=== PATIENT | female | born 1985 | race Caucasian/White ===

== ENCOUNTER 2016-09-22 11:22 | Emergency (ER) | payer SELFPAY ==
[2016-09-22] MEDS ORDERED: ONDANSETRON 4 MG TAB.RAPDIS PO ONE (12:17)
[2016-09-22] MEDS ORDERED: HYDROCODONE/ACETAMINOPHEN 5-325 MG TABLET PO ONE (12:17)
[2016-09-22] MEDS ORDERED: NAPROXEN 250 MG TABLET PO ONE (12:17)
--- NOTE | 2016-09-22 12:24 | ER Document Report ---
ED GI/ - General Chief Complaint: Urinary Problem Stated Complaint: URINARY PROBLEM Notes: The patient is a 31-year-old female, past medical history prior kidney stones and infections, seizures, possible bipolar, presents with 2 days of suprapubic pain that is now going into her right flank and subjective fevers. She says this feels similar to her prior kidney infection. She is also feeling nauseous and vomited after drinking fluids earlier today. She denies chest pain, shortness of breath, vaginal discharge, diarrhea, constipation, rash or headache. TRAVEL OUTSIDE OF THE [place] IN LAST 30 DAYS: No - Related Data Allergies/Adverse Reactions: phenytoin sodium [From Dilantin] Allergy (Severe, Verified 09/22/16 11:32) Seizures phenytoin sodium extended [From Dilantin] Allergy (Severe, Verified 09/22/16 11: 32) Seizures amoxicillin [Amoxicillin] Allergy (Mild, Verified 09/22/16 11:32) Urticaria ciprofloxacin [Ciprofloxacin] Allergy (Mild, Verified 09/22/16 11:32) Urticaria Penicillins Allergy (Mild, Verified 09/22/16 11:32) Urticaria Past Medical History - General Information source: Patient - Social History Smoking Status: Current Every Day Smoker Chew tobacco use (# tins/day): No Frequency of alcohol use: Rare Drug Abuse: None Family History: Reviewed & Not Pertinent, Arthritis, CAD, CVA, DM, Hyperlipidemia, Hypertension, Malignancy, Thyroid Disfunction Patient has suicidal ideation: No Patient has homicidal ideation: No - Past Medical History Cardiac Medical History: Reports: Hx Heart Murmur Neurological Medical History: Reports: Hx Migraine, Hx Seizures - last seizure 3 months ago - states is not on any anti-convulsant medication Endocrine Medical History: Reports: Hx Diabetes Mellitus Type 2, Hx Hyperthyroidism Renal/ Medical History: Reports: Hx Ectopic , Hx Kidney Stones, Hx Ovarian Cysts. Denies: Hx Peritoneal Dialysis, Hx Pelvic Inflammatory Disease Musculoskeltal Medical History: Reports Hx Musculoskeletal Deformity, Reports Hx Musculoskeletal Trauma Skin Medical History: Reports Hx MRSA Psychiatric Medical History: Reports: Hx Attention Deficit Hyperactivity Disorder Traumatic Medical History: Reports: Hx Fractures - clavicle ribs arm nose Infectious Medical History: Reports: Hx MRSA Past Surgical History: Reports: Hx Section, Hx Gynecologic Surgery - tubal ligation, Hx Nose Surgery, Hx Tubal Ligation - Immunizations Hx Diphtheria, Pertussis, Tetanus Vaccination: Yes - december 11 2015 Review of Systems - Review of Systems Notes: REVIEW OF SYSTEMS: CONSTITUTIONAL: -fevers, -chills EENT: -eye pain, -difficulty swallowing, -nasal congestion CARDIOVASCULAR:-chest pain, -syncope. RESPIRATORY: -cough, -SOB GASTROINTESTINAL: -abdominal pain, +nausea, +vomiting, -diarrhea GENITOURINARY: +dysuria, +hematuria MUSCULOSKELETAL: -back pain, -neck pain SKIN: -rash or skin lesions. HEMATOLOGIC: -easy bruising or bleeding. LYMPHATIC: -swollen, enlarged glands. NEUROLOGICAL: -altered mental status or loss of consciousness, -headache, - neurologic symptoms PSYCHIATRIC: -anxiety, -depression. ALL OTHER SYSTEMS REVIEWED AND NEGATIVE. Physical Exam - Vital signs Vitals: Temp Pulse Resp BP Pulse Ox 98.9 F 73 15 116/77 99 09/22/16 11:32 09/22/16 11:32 09/22/16 11:32 09/22/16 11:32 09/22/16 11:32 - Notes Notes: PHYSICAL EXAMINATION: GENERAL: Mild distress. HEAD: Atraumatic, normocephalic. EYES: Pupils equal round and reactive to light, extraocular movements intact, sclera anicteric, conjunctiva are normal. ENT: nares patent, oropharynx clear without exudates. Moist mucous membranes. NECK: Normal range of motion, supple without lymphadenopathy LUNGS: Breath sounds clear to auscultation bilaterally and equal. No wheezes rales or rhonchi. HEART: Regular rate and rhythm without murmurs ABDOMEN: Right CVA tenderness. Suprapubic tenderness. Non-distended and normoactive bowel sounds EXTREMITIES: Normal range of motion, no pitting or edema. No cyanosis. NEUROLOGICAL: Cranial nerves grossly intact. Normal speech, normal gait. Normal sensory, motor, and reflex exams. PSYCH: Normal mood, normal affect. SKIN: Warm, Dry, normal turgor, no rashes or lesions noted. Course - Re-evaluation Re-evalutation: Patient with signs of pyelonephritis on physical exam. UA shows 3-4 WBCs with trace Leuk Esterases. Looking through old allergies, patient urine grew out Escherichia coli in the past, which is sensitive to Bactrim. Patient has no right lower quadrant abdominal tenderness and is able to move around without pain. Told her that appendicitis is less likely at this time. Will send home with Bactrim and Zofran with strict return precautions. Patient understands. - Vital Signs Vital signs: Temp Pulse Resp BP Pulse Ox 98.9 F 73 15 116/77 99 09/22/16 11:32 09/22/16 11:32 09/22/16 11:32 09/22/16 11:32 09/22/16 11:32 - Laboratory Laboratory results interpreted by me: 09/22/16 12:25 Ur Leukocyte Esterase TRACE H Discharge - Discharge Clinical Impression: Flank pain, Dysuria Condition: Stable Disposition: HOME, SELF-CARE Additional Instructions: PYELONEPHRITIS: Your evaluation shows evidence of pyelonephritis. This is an infection in the kidney. Typical symptoms are fever, pain in the flank, pain on urination, and frequent urination. Many cases of pyelonephritis can be treated at home. Hospital care may be necessary for patients who are very ill, or elderly or . Pyelonephritis is treated with antibiotics. Be sure to take all the medication as prescribed. Drink plenty of liquids (about three quarts per day) . You may take acetaminophen for fever. You should feel significantly improved within two days. You should have a recheck of your urine in about one week to insure that the infection is gone. Return for a re-examination if your symptoms worsen in any way -- such as high fever, shaking chills, severe weakness or dizziness, severe pain, or inability to pass your urine. ANTINAUSEA MEDICATION: You have been given a medication to suppress nausea and vomiting. This type of medication can be given as a shot, pill, or suppository. It will usually last for many hours. Pills and shots usually last six to eight hours, suppositories last about 12 hours. For the typical illness, only one or two doses of the medication may be necessary. Mild lightheadedness may occur. This type of medicine can cause drowsiness. Do not drive or operate dangerous machinery while under its influence. Do not mix with alcohol. See your doctor at once if you have muscle spasms or tightness, or uncontrollable motions (particularly of the neck, mouth, or jaw). Persistent vomiting or severe lightheadedness should also be evaluated by the physician. ANTIBIOTIC THERAPY: You have been given an antibiotic prescription. It's important that you take all the medication, unless instructed otherwise by your physician. Failure to complete the entire course can result in relapse of your condition. Common side effects of antibiotics include nausea, intestinal cramping, or diarrhea. Women may develop vaginal yeast infections, and babies can get yeast (thrush) in the mouth following the use of antibiotics. Contact your physician if you develop significant side effects from this medication. Allergy to this antibiotic can result in hives, wheezing, faintness, or itching. If symptoms of allergy occur, stop the medication and call the doctor. TRIMETHOPRIM-SULFA: You have been given a prescription for trimethoprim-sulfa (TMS, Septra, Bactrim). This is a combination antibiotic of the sulfa class, often used for urinary tract infections, middle ear infections, bronchitis, shigella intestinal infection, and Pneumocystis pneumonia. TMS is usually well-tolerated. Occasional side effects include nausea and decreased appetite. Septra is not recommended for infants less than two months of age. Do not take this medication if you have experienced severe side effects or allergy to sulfa medicine. You should stop this medicine at once and contact your physician if you develop any rash, joint pain, shortness of breath, bruising, or jaundice ( yellow color in the skin), or if you develop any other new or unusual symptoms. USE OF ACETAMINOPHEN (Tylenol): Acetaminophen may be taken for pain relief or fever control. It's much safer than aspirin, offering a wider range of "safe" dosages. It is safe during . Some brand names are Tylenol, Panadol, Datril, Anacin 3, Tempra, and Liquiprin. Acetaminophen can be repeated every four hours. The following are maximum recommended dosages: >89 pounds or adults 650 mg to 900 mg Acetaminophen can be repeated every four hours. Maximum dose not to exceed 4000 mg a day. FOLLOW-UP CARE: If you have been referred to a physician for follow-up care, call the physician s office for an appointment as you were instructed or within the next two days. If you experience worsening or a significant change in your symptoms, notify the physician immediately or return to the Emergency Department at any time for re-evaluation. Prescriptions: Ondansetron [Zofran Odt 4 mg Tablet] 1 - 2 tab PO Q4H PRN #15 tab.rapdis PRN Reason: For Nausea/Vomiting Sulfamethoxazole/Trimethoprim [Bactrim 400-80 mg Tablet] 1 each PO Q12H #20 tablet
[2016-09-22 13:16] LABS: APPEARANCE,URINE CLOUDY; BILIRUBIN,URINE NEGATIVE (NEGATIVE); GLUCOSE, URINE NEGATIVE (NEGATIVE); KETONES,URINE NEGATIVE (NEGATIVE); LEUKOCYTE ESTERASE,URINE TRACE (NEGATIVE); NITRITE,URINE NEGATIVE (NEGATIVE); PROTEIN,URINE NEGATIVE (NEGATIVE); URINE SPECIFIC GRAVITY 1.016; UROBILINOGEN,URINE NEGATIVE mg/dL (<2.0)
[2016-09-22 14:07] VITALS: BP 113/81
== END 2016-09-22 14:03 | disposition home or self-care (01) ==
LOC: ER 11:22
DX: R10.9 Unspecified abdominal pain (principal); R30.0 Dysuria; R50.9 Fever, unspecified; F17.200 Nicotine dependence, unspecified, uncomplicated
CPT/HCPCS: 81001; 81025; 99283

== ENCOUNTER 2017-02-08 11:05 | Emergency (ER) | payer SELFPAY ==
[2017-02-08 12:09] LABS: ABSOLUTE MONOCYTES (AUTO) 0.3 10^3/uL (0.1-1.4); ABSOLUTE NEUT (AUTO) 4.2 10^3/uL (1.7-8.2); BASOPHILS % (AUTO) 0.6 % (0-2); EOSINOPHILS % (AUTO) 0.7 % (0-6); HEMATOCRIT 38.5 % (36.0-47.0); HEMOGLOBIN 13.1 g/dL (12.0-15.5); HGB HCT DIFFERENCE 0.8; LYMPHOCYTES % (AUTO) 30.7 % (13-45); MEAN CORPUSCULAR HEMOGLOBIN 31.5 pg (27.0-33.4); MEAN CORPUSCULAR HGB CONC 33.9 g/dL (32.0-36.0); MEAN CORPUSCULAR VOLUME 93 fl (80-97); MONOCYTES % (AUTO) 4.4 % (3-13); RED BLOOD COUNT 4.15 10^6/uL (3.72-5.28); RED CELL DISTRIBUTION WIDTH 13.7 % (11.5-14.0); SEGMENTED NEUTROPHILS % (AUTO) 63.6 % (42-78); WHITE BLOOD COUNT 6.7 10^3/uL (4.0-10.5)
--- NOTE | 2017-02-08 12:18 | RADIOLOGY REPORT (SQ) ---
EXAM DESCRIPTION: CT HEAD WITHOUT COMPLETED DATE/TIME: 02/08/2017 12:02 pm REASON FOR STUDY: lovell COMPARISON: None. TECHNIQUE: Axial images acquired through the brain without intravenous contrast. Images reviewed wi th bone, brain and subdural windows. Images stored on PACS. All CT scanners at this facility use dose modulation, iterative reconstruction, and/or weight based d osing when appropriate to reduce radiation dose to as low as reasonably achievable (ALARA). [facility]: Dose Right [facility]: CareDose [facility]: Dose Right [facility]: Teradose 4D [facility]: Inherited Health RADIATION DOSE: Up-to-date CT equipment and radiation dose reduction techniques were employed. CTDIv ol: 64.6 mGy. DLP: 1292 mGy-cm. mGy. LIMITATIONS: None. FINDINGS: VENTRICLES: Normal size and contour. CEREBRUM: No masses. No hemorrhage. No midline shift. No evidence for acute infarction. Normal gra y/white matter differentiation. No areas of low density in the white matter. CEREBELLUM: No masses. No hemorrhage. No alteration of density. No evidence for acute infarction. EXTRAAXIAL SPACES: No fluid collections. No masses. ORBITS AND GLOBE: No intra- or extraconal masses. Normal contour of globe without masses. CALVARIUM: No fracture. PARANASAL SINUSES: No fluid or mucosal thickening. SOFT TISSUES: No mass or hematoma. OTHER: No other significant finding. IMPRESSION: NORMAL BRAIN CT WITHOUT CONTRAST. COMMENT: Quality ID # [id number]: Final reports with documentation of one or more dose reduction techniques (e.g., Automated exposure control, adjustment of the mA and/or kV according to patient size, use of iterative reconstruction technique) TECHNICAL DOCUMENTATION: JOB ID: [id number]- All Rights Reserved
[2017-02-08 12:22] LABS: AMORPHOUS SEDIMENT,URINE TRACE /HPF; APPEARANCE,URINE TURBID; BILIRUBIN,URINE NEGATIVE (NEGATIVE); GLUCOSE, URINE NEGATIVE (NEGATIVE); KETONES,URINE NEGATIVE (NEGATIVE); LEUKOCYTE ESTERASE,URINE NEGATIVE (NEGATIVE); NITRITE,URINE NEGATIVE (NEGATIVE); PROTEIN,URINE 30 mg/dL (NEGATIVE); URINE SPECIFIC GRAVITY 1.019; UROBILINOGEN,URINE NEGATIVE mg/dL (<2.0)
[2017-02-08 12:24] LABS: ALANINE AMINOTRANSFERASE 22 U/L (9-52); ALBUMIN 4.7 g/dL (3.5-5.0); ALKALINE PHOSPHATASE 93 U/L (38-126); ANION GAP 10 (5-19); ASPARTATE AMINO TRANSFERASE 18 U/L (14-36); BILIRUBIN,DIRECT 0.3 mg/dL (0.0-0.4); BILIRUBIN,TOTAL 0.7 mg/dL (0.2-1.3); BLOOD UREA NITROGEN 10 mg/dL (7-20); CALCIUM 10.3 mg/dL (8.4-10.2); CARBON DIOXIDE 26 mmol/L (22-30); CHLORIDE 106 mmol/L (98-107); CREATININE RESULT 0.72 mg/dL (0.52-1.25); GLUCOSE 92 mg/dL (75-110); POTASSIUM 4.3 mmol/L (3.6-5.0); TOTAL PROTEIN 7.3 g/dL (6.3-8.2)
--- NOTE | 2017-02-08 12:37 | ER Document Report ---
ED General - General Chief Complaint: Neck Pain >24hrs old Stated Complaint: LIGHT HEADEDNESS Time Seen by Provider: 02/08/17 11:30 Mode of Arrival: Ambulatory Information source: Patient Notes: Patient reports several days of headache neck pain, weakness, lightheadedness, generalized body aches. She states she did recently have a tick embedded in her left butt cheek that was removed. Patient denies any rashes. No fevers. She has had no vaginal bleeding or problems with urination. Patient states that the headache is occipital and constant. It is moderate. It is throbbing. Nothing makes it better or worse. It does radiate into her neck. TRAVEL OUTSIDE OF THE [place] IN LAST 30 DAYS: No - Related Data Allergies/Adverse Reactions: phenytoin sodium [From Dilantin] Allergy (Severe, Verified 02/08/17 11:41) Seizures phenytoin sodium extended [From Dilantin] Allergy (Severe, Verified 02/08/17 11: 41) Seizures amoxicillin [Amoxicillin] Allergy (Mild, Verified 02/08/17 11:41) Urticaria ciprofloxacin [Ciprofloxacin] Allergy (Mild, Verified 02/08/17 11:41) Urticaria Penicillins Allergy (Mild, Verified 02/08/17 11:41) Urticaria Past Medical History - General Information source: Patient - Social History Smoking Status: Current Every Day Smoker Chew tobacco use (# tins/day): No Frequency of alcohol use: None Drug Abuse: None Lives with: Family Family History: Reviewed & Not Pertinent, Arthritis, CAD, CVA, DM, Hyperlipidemia, Hypertension, Malignancy, Thyroid Disfunction Patient has suicidal ideation: No Patient has homicidal ideation: No - Past Medical History Cardiac Medical History: Reports: Hx Heart Murmur Neurological Medical History: Reports: Hx Migraine, Hx Seizures - last seizure 3 months ago - states is not on any anti-convulsant medication Endocrine Medical History: Reports: Hx Diabetes Mellitus Type 2, Hx Hyperthyroidism Renal/ Medical History: Reports: Hx Ectopic , Hx Kidney Stones, Hx Ovarian Cysts. Denies: Hx Peritoneal Dialysis, Hx Pelvic Inflammatory Disease Musculoskeltal Medical History: Reports Hx Musculoskeletal Deformity, Reports Hx Musculoskeletal Trauma Skin Medical History: Reports Hx MRSA Psychiatric Medical History: Reports: Hx Attention Deficit Hyperactivity Disorder Traumatic Medical History: Reports: Hx Fractures - clavicle ribs arm nose Infectious Medical History: Reports: Hx MRSA Past Surgical History: Reports: Hx Section, Hx Gynecologic Surgery - tubal ligation, Hx Nose Surgery, Hx Tubal Ligation - Immunizations Hx Diphtheria, Pertussis, Tetanus Vaccination: Yes - december 11 2015 Review of Systems - Review of Systems Constitutional: Malaise, Weakness Cardiovascular: denies: Chest pain, Palpitations Respiratory: denies: Cough, Short of breath -: Yes All other systems reviewed and negative Physical Exam - Vital signs Vitals: Temp Pulse BP Pulse Ox 98.5 F 80 120/67 99 02/08/17 11:18 02/08/17 11:18 02/08/17 11:18 02/08/17 11:18 Interpretation: Normal - General General appearance: Appears well, Alert - HEENT Head: Normocephalic, Atraumatic Eyes: Normal Pupils: PERRL Mucous membranes: Moist Pharynx: Normal. No: Erythema, Exudate Neck: No: Lymphadenopathy, Meningismus - Respiratory Respiratory status: No respiratory distress Chest status: Nontender Breath sounds: Normal Chest palpation: Normal - Cardiovascular Rhythm: Regular Heart sounds: Normal auscultation Murmur: No - Abdominal Inspection: Normal Distension: No distension Bowel sounds: Normal Tenderness: Nontender Organomegaly: No organomegaly - Back Back: Normal, Nontender - Extremities General upper extremity: Normal inspection, Nontender, Normal color, Normal ROM , Normal temperature General lower extremity: Normal inspection, Nontender, Normal color, Normal ROM , Normal temperature, Normal weight bearing. No: Abelardo's sign - Neurological Neuro grossly intact: Yes Cognition: Normal Orientation: AAOx4 [place] Coma Scale Eye Opening: Spontaneous [place] Coma Scale Verbal: Oriented [place] Coma Scale Motor: Obeys Commands [place] Coma Scale Total: 15 Speech: Normal Motor strength normal: LUE, RUE, LLE, RLE Sensory: Normal - Psychological Associated symptoms: Normal affect, Normal mood - Skin Skin Temperature: Warm Skin Moisture: Dry Skin Color: Normal Irregularity with: Other - Left lateral butt cheek was inspected with the direct supervision of the nurseRupa. Patient has a very small area of erythema without any signs of superinfection. Course - Vital Signs Vital signs: Temp Pulse Resp BP Pulse Ox 98.5 F 80 120/67 99 02/08/17 11:18 02/08/17 11:18 02/08/17 11:18 02/08/17 11:18 - Laboratory Result Diagrams: 02/08/17 11:53 02/08/17 11:53 Laboratory results interpreted by me: 02/08/17 02/08/17 11:53 11:53 Calcium 10.3 H Urine Protein 30 H Urine Blood MODERATE H - Diagnostic Test Radiology reviewed: Image reviewed, Reports reviewed - neg head ct Discharge - Discharge Clinical Impression: UTI (urinary tract infection), Tick bite Condition: Stable Disposition: HOME, SELF-CARE Instructions: Urinary Tract Infection ([facility]) Additional Instructions: Please call your primary care provider as soon as possible to arrange follow- up. You may use the primary care provider, Dr. Etienne if you do not currently have a primary care provider. Prescriptions: Doxycycline Hyclate 100 mg PO BID #14 capsule Hydrocodone/Acetaminophen [[place] 5-325 mg Tablet] 1 tab PO Q6 PRN #6 tablet PRN Reason: Forms: Return to Work Referrals: MARCOS ETIENNE MD [ACTIVE STAFF] - Follow up as needed
[2017-02-08 12:43] VITALS: BP 130/75
== END 2017-02-08 12:43 | disposition home or self-care (01) ==
LOC: ER 11:05
DX: W57.XXXA Bitten or stung by nonvenomous insect and other nonvenomous arthropods, initial encounter (principal); S30.860A Insect bite (nonvenomous) of lower back and pelvis, initial encounter; N39.0 Urinary tract infection, site not specified; R51 Headache; M54.2 Cervicalgia; R53.1 Weakness; R53.81 Other malaise; R42 Dizziness and giddiness; F17.200 Nicotine dependence, unspecified, uncomplicated; E11.9 Type 2 diabetes mellitus without complications; Z88.8 Allergy status to other drugs, medicaments and biological substances; Z88.0 Allergy status to penicillin; Z88.1 Allergy status to other antibiotic agents; Z86.14 Personal history of Methicillin resistant Staphylococcus aureus infection
CPT/HCPCS: 36415; 70450; 80053; 81001; 81025; 85025; 99284

== ENCOUNTER 2017-07-19 16:58 | Emergency (ER) | payer SELFPAY ==
[2017-07-19 18:50] LABS: APPEARANCE,URINE CLOUDY; BILIRUBIN,URINE NEGATIVE (NEGATIVE); COLOR,URINE YELLOW; GLUCOSE, URINE NEGATIVE (NEGATIVE); KETONES,URINE NEGATIVE (NEGATIVE); LEUKOCYTE ESTERASE,URINE LARGE (NEGATIVE); NITRITE,URINE POSITIVE (NEGATIVE); PROTEIN,URINE 30 mg/dL (NEGATIVE); URINE SPECIFIC GRAVITY 1.018
[2017-07-19] MEDS ORDERED: PHENAZOPYRIDINE HCL 200 MG TABLET PO ONE (19:05)
[2017-07-19] MEDS ORDERED: SULFAMETHOXAZOLE/TRIMETHOPRIM 800-160 MG TABLET PO ONE (19:06)
[2017-07-19] MEDS ORDERED: CEFTRIAXONE INJ 1000 MG VIAL IM ONE (19:11)
[2017-07-19] MEDS ORDERED: LIDOCAINE 1% INJ-PF (10 MG/ML) 30 ML SDV INFIL ONE (19:11)
--- NOTE | 2017-07-19 19:15 | ER Document Report ---
ED General - General Chief Complaint: Low Back Pain Stated Complaint: PAINFUL URINATION Time Seen by Provider: 07/19/17 18:17 Mode of Arrival: Ambulatory Information source: Patient, Relative TRAVEL OUTSIDE OF THE [place] IN LAST 30 DAYS: No - HPI Notes: 31-year-old female presents today with 1 week of dysuria, burning, right CVA tenderness. reports pain 4/10, burning with urination. denies vaginal discharge or pelvic pain. denies back pain. has not tried any otc medications. nothing makes better or worse. lmp x 3 days ago. hx of uti. Denies any cp, sob, n/v/d. denies any fevers or chills. Eating and drinking without issues. - Related Data Allergies/Adverse Reactions: phenytoin sodium [From Dilantin] Allergy (Severe, Verified 07/19/17 16:59) Seizures phenytoin sodium extended [From Dilantin] Allergy (Severe, Verified 07/19/17 16: 59) Seizures amoxicillin [Amoxicillin] Allergy (Mild, Verified 07/19/17 16:59) Urticaria ciprofloxacin [Ciprofloxacin] Allergy (Mild, Verified 07/19/17 16:59) Urticaria Penicillins Allergy (Mild, Verified 07/19/17 16:59) Urticaria Past Medical History - General Information source: Patient, Parent - Social History Smoking Status: Current Every Day Smoker Chew tobacco use (# tins/day): No Frequency of alcohol use: Occasional Drug Abuse: None Family History: Reviewed & Not Pertinent, Arthritis, CAD, CVA, DM, Hyperlipidemia, Hypertension, Malignancy, Thyroid Disfunction Patient has suicidal ideation: No Patient has homicidal ideation: No - Past Medical History Cardiac Medical History: Reports: Hx Heart Murmur Neurological Medical History: Reports: Hx Migraine, Hx Seizures - last seizure 3 months ago - states is not on any anti-convulsant medication Endocrine Medical History: Reports: Hx Diabetes Mellitus Type 2, Hx Hyperthyroidism Renal/ Medical History: Reports: Hx Ectopic , Hx Kidney Stones, Hx Ovarian Cysts. Denies: Hx Peritoneal Dialysis, Hx Pelvic Inflammatory Disease Musculoskeltal Medical History: Reports Hx Musculoskeletal Deformity, Reports Hx Musculoskeletal Trauma Skin Medical History: Reports Hx MRSA Psychiatric Medical History: Reports: Hx Attention Deficit Hyperactivity Disorder Traumatic Medical History: Reports: Hx Fractures - clavicle ribs arm nose Infectious Medical History: Reports: Hx MRSA Past Surgical History: Reports: Hx Section, Hx Gynecologic Surgery - tubal ligation, Hx Nose Surgery, Hx Tubal Ligation - Immunizations Hx Diphtheria, Pertussis, Tetanus Vaccination: Yes - december 11 2015 Review of Systems - Review of Systems Constitutional: No symptoms reported EENT: No symptoms reported Cardiovascular: No symptoms reported Respiratory: No symptoms reported Gastrointestinal: No symptoms reported Genitourinary: See HPI Female Genitourinary: No symptoms reported Musculoskeletal: No symptoms reported Skin: No symptoms reported Hematologic/Lymphatic: No symptoms reported Neurological/Psychological: No symptoms reported Physical Exam - Vital signs Vitals: Temp Pulse Resp BP Pulse Ox 99.2 F 81 16 117/60 98 07/19/17 17:16 07/19/17 17:16 07/19/17 17:16 07/19/17 17:16 07/19/17 17:16 - Notes Notes: PHYSICAL EXAMINATION: GENERAL: Well-appearing, well-nourished and in no acute distress. HEAD: Atraumatic, normocephalic. EYES: Pupils equal round and reactive to light, extraocular movements intact, conjunctiva are normal. ENT: Nares patent, oropharynx clear without exudates. Moist mucous membranes. NECK: Normal range of motion, supple without lymphadenopathy LUNGS: Breath sounds clear to auscultation bilaterally and equal. No wheezes rales or rhonchi. HEART: Regular rate and rhythm without murmurs ABDOMEN: Soft, nontender, nondistended abdomen. No guarding, no rebound. No masses appreciated. Right CVA tenderness, suprapubic tenderness on palpation. Female : deferred Musculoskeletal: Normal range of motion, no pitting or edema. No cyanosis. NEUROLOGICAL: Cranial nerves grossly intact. Normal speech, normal gait. Normal sensory, motor exams PSYCH: Normal mood, normal affect. SKIN: Warm, Dry, normal turgor, no rashes or lesions noted. Course - Re-evaluation Re-evalutation: 07/19/17 19:21 Test with patient that I did give 1 g of Rocephin, she states she did have an allergy back when she was a child where she had a rash, states she is unsure she has had penicillin since that time. She did not have an allergic reaction advised to return to the ER if any signs or symptoms became worse. Antibiotics with food, eat yogurt daily to prevent loose stool. Take [id number] Motrin and Tylenol as needed for any fevers or pain.~ Follow up with primary care within 1-2 days. All questions and concerns answered by this provider. Patient/family~ states would follow plan of care and agreed to plan of care. Patient was discharged home and off unit without incident. Please excuse any errors in this document was done by dragon dictation Rechecked the patient who is resting comfortably. - Vital Signs Vital signs: Temp Pulse Resp BP Pulse Ox 99.2 F 81 16 117/60 98 07/19/17 17:16 07/19/17 17:16 07/19/17 17:16 07/19/17 17:16 07/19/17 17:16 - Laboratory Laboratory results interpreted by wa: 07/19/17 17:20 Urine Protein 30 H Urine Blood MODERATE H Urine Nitrite POSITIVE H Urine Urobilinogen 2.0 H Ur Leukocyte Esterase LARGE H Discharge - Discharge Clinical Impression: Acute pyelonephritis Condition: Good Disposition: HOME, SELF-CARE Instructions: Pyelonephritis ([facility]), Rocephin ([facility]), Antibiotic Therapy ([facility]), Ciprofloxacin ([facility]) Additional Instructions: PYELONEPHRITIS: Your evaluation shows evidence of pyelonephritis. This is an infection in the kidney. Typical symptoms are fever, pain in the flank, pain on urination, and frequent urination. Many cases of pyelonephritis can be treated at home. Hospital care may be necessary for patients who are very ill, or elderly or . Pyelonephritis is treated with antibiotics. Be sure to take all the medication as prescribed. Drink plenty of liquids (about three quarts per day) . You may take acetaminophen for fever. You should feel significantly improved within two days. You should have a recheck of your urine in about one week to insure that the infection is gone. Return for a re-examination if your symptoms worsen in any way -- such as high fever, shaking chills, severe weakness or dizziness, severe pain, or inability to pass your urine. TORADOL INJECTION: You have been given an injection of ketorolac tromethamine (Toradol). This is an excellent, safe drug for pain control. It also has potent antiinflammatory action. You should have significant pain relief within about one hour. Toradol is not addicting and is non-sedating. It does not interfere with driving or work. Call or return if you develop itching, hives, shortness of breath, or rash. PAIN MEDICATION INJECTION: You have received an injection of a pain medication. You should experience significant pain relief within 45 minutes. This drug is a narcotic - - it will impair your judgement, slow your reaction time and make you sleepy ( as well as relieve your pain). Narcotics also can cause nausea. You should not drive, work with machinery, or perform any task requiring mental alertness until all effects of the medication are gone -- six to eight hours. Do not take any alcohol, or sedatives, and do not take any other medication without checking with your physician. ANTINAUSEA MEDICATION: You have been given a medication to suppress nausea and vomiting. This type of medication can be given as a shot, pill, or suppository. It will usually last for many hours. Pills and shots usually last six to eight hours, suppositories last about 12 hours. For the typical illness, only one or two doses of the medication may be necessary. Mild lightheadedness may occur. This type of medicine can cause drowsiness. Do not drive or operate dangerous machinery while under its influence. Do not mix with alcohol. See your doctor at once if you have muscle spasms or tightness, or uncontrollable motions (particularly of the neck, mouth, or jaw). Persistent vomiting or severe lightheadedness should also be evaluated by the physician. ANTIBIOTIC THERAPY: You have been given an antibiotic prescription. It's important that you take all the medication, unless instructed otherwise by your physician. Failure to complete the entire course can result in relapse of your condition. Common side effects of antibiotics include nausea, intestinal cramping, or diarrhea. Women may develop vaginal yeast infections, and babies can get yeast (thrush) in the mouth following the use of antibiotics. Contact your physician if you develop significant side effects from this medication. Allergy to this antibiotic can result in hives, wheezing, faintness, or itching. If symptoms of allergy occur, stop the medication and call the doctor. ROCEPHIN: You have been given an injection of an antibiotic called Rocephin ( ceftriaxone). Sometimes the injection must be combined with antibiotic pills. For some infections, such as an uncomplicated ear infection, Rocephin provides all the antibiotic that's needed. The antibiotic will be in your body for about two days. For serious infections, we usually repeat doses of Rocephin daily. Side effects are very unusual following a shot. Women may develop vaginal yeast infections, and babies can get yeast (thrush) in the mouth following the use of antibiotics. Contact your physician if you have symptoms with this medication. Allergy to this antibiotic can result in hives, wheezing, faintness, or itching. If symptoms of allergy occur, call the doctor at once. CIPROFLOXACIN: You have been given an antibacterial agent, ciprofloxacin (Cipro). This medicine is not related to the penicillins, sulfas, cephalosporins, or tetracyclines. It is often given to patients who are allergic to these drugs. It has been chosen for you either because other drugs are not appropriate, or because of the nature of your problem. Cipro should not be taken with antacids, as these can decrease its effectiveness. It can be taken without regard to meals. CIPRO SHOULD NOT BE TAKEN BY CHILDREN, NURSING WOMEN, OR WOMEN. Although Cipro is usually well-tolerated, common side effects can include nausea and diarrhea. Contact your doctor if you experience any unusual symptoms while on this medication, such as joint pain or swelling, shortness of breath, wheezing, faintness, or hives. FOLLOW-UP CARE: If you have been referred to a physician for follow-up care, call the physician s office for an appointment as you were instructed or within the next two days. If you experience worsening or a significant change in your symptoms, notify the physician immediately or return to the Emergency Department at any time for re-evaluation. Return immediately for any new or worsening symptoms. Follow up with primary care provider, call tomorrow to make followup appointment. Prescriptions: Ciprofloxacin HCl [Cipro 500 mg Tablet] 500 mg PO BID #20 tablet Phenazopyridine HCl [Pyridium] 200 mg PO TIDP PRN #9 tablet PRN Reason: Forms: Return to Work Referrals: JESSE PIÑA MD [ACTIVE STAFF] - Follow up in 1 week ROBERTO MEAD MD [COMMUNITY BASED STAFF] - Follow up in 3-5 days
[2017-07-19 20:37] VITALS: BP 110/65
== END 2017-07-19 20:35 | disposition home or self-care (01) ==
LOC: ER 16:58
DX: N10 Acute pyelonephritis (principal); E11.9 Type 2 diabetes mellitus without complications; F17.200 Nicotine dependence, unspecified, uncomplicated; Z88.8 Allergy status to other drugs, medicaments and biological substances; Z88.1 Allergy status to other antibiotic agents; Z88.0 Allergy status to penicillin; Z86.14 Personal history of Methicillin resistant Staphylococcus aureus infection
CPT/HCPCS: 99283; 96372; 87086; 81025; 87088; 81001; 87186; J3490 ×2; J0696

== ENCOUNTER 2017-07-24 09:25 | Emergency (ER) | payer SELFPAY ==
[2017-07-24] MEDS ORDERED: NORMAL SALINE 1000 ML 1,000 ML IV ONE (09:52)
[2017-07-24] MEDS ORDERED: KETOROLAC TROMETHAMINE INJ/PF 30 MG/1 ML SDV IV ONE (09:52)
--- NOTE | 2017-07-24 09:54 | ER Document Report ---
ED Medical Screen (RME) - General Chief Complaint: Urinary Problem Stated Complaint: LOWER ABDOMINAL PAIN Time Seen by Provider: 07/24/17 09:52 Mode of Arrival: Ambulatory Information source: Patient TRAVEL OUTSIDE OF THE [place] IN LAST 30 DAYS: No - HPI Patient complains to provider of: flank pain Onset: Other - pt was seen here last week with d/o uti --- states pain is worse -- has h/o kidney stones - Related Data Allergies/Adverse Reactions: phenytoin sodium [From Dilantin] Allergy (Severe, Verified 07/24/17 09:44) Seizures phenytoin sodium extended [From Dilantin] Allergy (Severe, Verified 07/24/17 09: 44) Seizures amoxicillin [Amoxicillin] Allergy (Mild, Verified 07/24/17 09:44) Urticaria ciprofloxacin [Ciprofloxacin] Allergy (Mild, Verified 07/24/17 09:44) Urticaria Penicillins Allergy (Mild, Verified 07/24/17 09:44) Urticaria Past Medical History - Social History Chew tobacco use (# tins/day): No Frequency of alcohol use: None Drug Abuse: None - Past Medical History Cardiac Medical History: Reports: Hx Heart Murmur Neurological Medical History: Reports: Hx Migraine, Hx Seizures - last seizure 3 months ago - states is not on any anti-convulsant medication Endocrine Medical History: Reports: Hx Diabetes Mellitus Type 2, Hx Hyperthyroidism Renal/ Medical History: Reports: Hx Ectopic , Hx Kidney Stones, Hx Ovarian Cysts. Denies: Hx Peritoneal Dialysis, Hx Pelvic Inflammatory Disease Musculoskeltal Medical History: Reports Hx Musculoskeletal Deformity, Reports Hx Musculoskeletal Trauma Skin Medical History: Reports Hx MRSA Psychiatric Medical History: Reports: Hx Attention Deficit Hyperactivity Disorder Traumatic Medical History: Reports: Hx Fractures - clavicle ribs arm nose Infectious Medical History: Reports: Hx MRSA Past Surgical History: Reports: Hx Section, Hx Gynecologic Surgery - tubal ligation, Hx Nose Surgery, Hx Tubal Ligation - Immunizations Hx Diphtheria, Pertussis, Tetanus Vaccination: Yes - december 11 2015 Physical Exam - Vital signs Vitals: Temp Pulse Resp BP Pulse Ox 98.6 F 105 H 18 127/76 H 99 07/24/17 09:37 07/24/17 09:37 07/24/17 09:37 07/24/17 09:37 07/24/17 09:37 Course - Vital Signs Vital signs: Temp Pulse Resp BP Pulse Ox 98.6 F 105 H 18 127/76 H 99 07/24/17 09:37 07/24/17 09:37 07/24/17 09:37 07/24/17 09:37 07/24/17 09:37
--- NOTE | 2017-07-24 10:04 | ER Document Report ---
ED General - General Chief Complaint: Urinary Problem Stated Complaint: LOWER ABDOMINAL PAIN Time Seen by Provider: 07/24/17 09:52 Mode of Arrival: Ambulatory Information source: Patient TRAVEL OUTSIDE OF THE [place] IN LAST 30 DAYS: No - HPI Notes: 31 yr old female returns to the emergency room after being seen by this provider 5 days ago for a pyelonephritis where she was treated with 1 g Rocephin , started on Bactrim because she has an allergy to ciprofloxacin, with complaints of worsening lower back pain, urinary pressure, and myalgias that started 2 days ago. Patient states she has been taking oral Bactrim as directed as well as increasing oral fluids. Patient states she felt better after few days of being seen in the ER, but it started to gradually become worse. Denies any rashes. Denies any fevers or chills, sore throat, cough, sinus pain, nasal congestion, chest pain, shortness of breath, nausea, vomiting , diarrhea. Denies any vaginal or pelvic pain. Pain is 8 out of 10, throbbing achy. States she feels like the antibiotics are somewhat helping. She does have a history of nephrolithiasis. - Related Data Allergies/Adverse Reactions: phenytoin sodium [From Dilantin] Allergy (Severe, Verified 07/24/17 09:44) Seizures phenytoin sodium extended [From Dilantin] Allergy (Severe, Verified 07/24/17 09: 44) Seizures amoxicillin [Amoxicillin] Allergy (Mild, Verified 07/24/17 09:44) Urticaria ciprofloxacin [Ciprofloxacin] Allergy (Mild, Verified 07/24/17 09:44) Urticaria Penicillins Allergy (Mild, Verified 07/24/17 09:44) Urticaria Past Medical History - General Information source: Patient - Social History Smoking Status: Current Every Day Smoker Chew tobacco use (# tins/day): No Frequency of alcohol use: None Drug Abuse: None Family History: Reviewed & Not Pertinent, Arthritis, CAD, CVA, DM, Hyperlipidemia, Hypertension, Malignancy, Thyroid Disfunction Patient has suicidal ideation: No Patient has homicidal ideation: No - Past Medical History Cardiac Medical History: Reports: Hx Heart Murmur Neurological Medical History: Reports: Hx Migraine, Hx Seizures - last seizure 3 months ago - states is not on any anti-convulsant medication Endocrine Medical History: Reports: Hx Diabetes Mellitus Type 2, Hx Hyperthyroidism Renal/ Medical History: Reports: Hx Ectopic , Hx Kidney Stones, Hx Ovarian Cysts. Denies: Hx Peritoneal Dialysis, Hx Pelvic Inflammatory Disease Musculoskeltal Medical History: Reports Hx Musculoskeletal Deformity, Reports Hx Musculoskeletal Trauma Skin Medical History: Reports Hx MRSA Psychiatric Medical History: Reports: Hx Attention Deficit Hyperactivity Disorder Traumatic Medical History: Reports: Hx Fractures - clavicle ribs arm nose Infectious Medical History: Reports: Hx MRSA Past Surgical History: Reports: Hx Section, Hx Gynecologic Surgery - tubal ligation, Hx Nose Surgery, Hx Tubal Ligation - Immunizations Hx Diphtheria, Pertussis, Tetanus Vaccination: Yes - december 11 2015 Review of Systems - Review of Systems Constitutional: No symptoms reported EENT: No symptoms reported Cardiovascular: No symptoms reported Respiratory: No symptoms reported Gastrointestinal: See HPI Genitourinary: See HPI Female Genitourinary: No symptoms reported Musculoskeletal: No symptoms reported Skin: No symptoms reported Hematologic/Lymphatic: No symptoms reported Neurological/Psychological: No symptoms reported Physical Exam - Vital signs Vitals: Temp Pulse Resp BP Pulse Ox 98.6 F 105 H 18 127/76 H 99 07/24/17 09:37 07/24/17 09:37 07/24/17 09:37 07/24/17 09:37 07/24/17 09:37 Interpretation: Tachycardic - Notes Notes: PHYSICAL EXAMINATION: GENERAL: Well-appearing, well-nourished and in no acute distress. HEAD: Atraumatic, normocephalic. EYES: Pupils equal round and reactive to light, extraocular movements intact, conjunctiva are normal. ENT: Nares patent, oropharynx clear without exudates. Moist mucous membranes. NECK: Normal range of motion, supple without lymphadenopathy LUNGS: Breath sounds clear to auscultation bilaterally and equal. No wheezes rales or rhonchi. HEART: Regular rate and rhythm without murmurs ABDOMEN: Soft, nontender, nondistended abdomen. No guarding, no rebound. No masses appreciated. R>L CVA tenderness on palpation. noted suprapubic tenderness on palpation. Female : deferred Musculoskeletal: Normal range of motion, no pitting or edema. No cyanosis. NEUROLOGICAL: Cranial nerves grossly intact. Normal speech, normal gait. Normal sensory, motor exams PSYCH: Normal mood, normal affect. SKIN: Warm, Dry, normal turgor, no rashes or lesions noted. Course - Re-evaluation Re-evalutation: Rechecked the patient who is resting comfortably. On re-exam, patient is symptomatically improved. Discussed the results of the labs/radiology as well as the diagnosis at great length. He has a 2 mm nonobstructing caylceal calculus or pole of the right kidney, no ureteral calculi. Merrill with patient to continue taking antibiotics, to take Zofran as needed for nausea and, take pain medication as needed for pain, take Flomax to dilate uterus to passed stone. Urine strainer given to Flako. Follow-up with PCP within 3 days. Follow-up with urologist within 1 week. Return to the emergency room if symptoms become worse. Discussed the need to return to the ER for any new or worsening sx. Patient understands to take the Rx as directed. All questions answered. Patient comfortable with the decision to go home. Patient/family states would follow plan of care and agreed to plan of care. Patient was discharged home and off unit without incident. Please excuse any errors in this document was done by dragon dictation. - Vital Signs Vital signs: Temp Pulse Resp BP Pulse Ox 98.6 F 105 H 18 127/76 H 99 07/24/17 09:37 07/24/17 09:37 07/24/17 09:37 07/24/17 09:37 07/24/17 09:37 - Laboratory Result Diagrams: 07/24/17 10:43 07/24/17 10:43 Discharge - Discharge Clinical Impression: Calyceal renal calculus Condition: Good Disposition: HOME, SELF-CARE Additional Instructions: KIDNEY STONE: You are passing or have passed a kidney stone. These stones are usually due to increased calcium or uric acid concentrations in your urine. Stones within the kidney itself are not painful. The pain occurs as the stone leaves the kidney to pass down the long tube, called the ureter, leading to the bladder. If the stone is small, it will usually pass by itself. Most patients can pass the stone at home. You will usually receive medications for pain, nausea or vomiting, and sometimes a medication to assist in passing the kidney stone. However, if the pain is very severe or if vomiting prevents you from taking oral pain medications, you may need to return for further treatment. Drink three or four quarts of fluids per day. You will be given pain medication (if needed) and urine strainers. Strain all your urine to see if the stone passes. If your doctor has asked you to bring the stone in for analysis, return with the stone once it has passed. Return if pain or vomiting become severe, if you develop a high fever, if you are unable to pass your urine, or if other unusual symptoms occur. TORADOL INJECTION: You have been given an injection of ketorolac tromethamine (Toradol). This is an excellent, safe drug for pain control. It also has potent antiinflammatory action. You should have significant pain relief within about one hour. Toradol is not addicting and is non-sedating. It does not interfere with driving or work. Call or return if you develop itching, hives, shortness of breath, or rash. PAIN MEDICATION INJECTION: You have received an injection of a pain medication. You should experience significant pain relief within 45 minutes. This drug is a narcotic - - it will impair your judgement, slow your reaction time and make you sleepy ( as well as relieve your pain). Narcotics also can cause nausea. You should not drive, work with machinery, or perform any task requiring mental alertness until all effects of the medication are gone -- six to eight hours. Do not take any alcohol, or sedatives, and do not take any other medication without checking with your physician. ANTINAUSEA MEDICATION: You have been given a medication to suppress nausea and vomiting. This type of medication can be given as a shot, pill, or suppository. It will usually last for many hours. Pills and shots usually last six to eight hours, suppositories last about 12 hours. For the typical illness, only one or two doses of the medication may be necessary. Mild lightheadedness may occur. This type of medicine can cause drowsiness. Do not drive or operate dangerous machinery while under its influence. Do not mix with alcohol. See your doctor at once if you have muscle spasms or tightness, or uncontrollable motions (particularly of the neck, mouth, or jaw). Persistent vomiting or severe lightheadedness should also be evaluated by the physician. ORAL NARCOTIC MEDICATION: You have been given a prescription for pain control. This medication is a narcotic. It's best taken with food, as nausea can result if taken on an empty stomach. Don't operate machinery or drive within six hours of taking this medication. Do not combine this medicine with alcohol, or with any medication which can cause sedation (such as cold tablets or sleeping pills) unless you get permission from the physician. Narcotics tend to cause constipation. If possible, drink plenty of fluids and eat a diet high in fiber and fruits. Please be aware that prescription narcotics also have the potential for abuse. People become addicted to these medications because of the general sense of wellbeing that they induce. This feeling along with a significant reduction in tension, anxiety, and aggression provides a stimulating seductive quality to these drugs. Once your pain is under control, we encourage you to discard your unused narcotics. FLOMAX (tamsulosin): Flomax is a medicine that shrinks the prostate gland. It helps relieve symptoms of benign prostatic hypertrophy, such as frequent urination, weak stream, and inadequate emptying. It has been shown to dilate the ureter (tube leading from the kidney to the bladder) and help in passing kidney stones Flomax usually causes no side effects. You may notice slight tiredness and dizziness for a few days. Some patients develop nasal congestion. Rarely, impotence can occur. If the symptoms are bothersome and don't improve with continued use, call your doctor. Contact your doctor or return if you have fainting spells, severe weakness or dizziness, shortness of breath, or rash. FOLLOW-UP CARE: If you have been referred to a physician for follow-up care, call the physician s office for an appointment as you were instructed or within the next two days. If you experience worsening or a significant change in your symptoms, notify the physician immediately or return to the Emergency Department at any time for re-evaluation. Up with PCP and urologist within 3-5 days to 1 week. Return to the emergency room symptoms become worse. Return immediately for any new or worsening symptoms. Follow up with primary care provider, call tomorrow to make followup appointment. Referrals: EMY LEBLANC MD [ACTIVE STAFF] - Follow up in 3-5 days KEANU KINCAID MD [EMERITUS] - Follow up in 3-5 days
[2017-07-24 10:59] LABS: ABSOLUTE LYMPHOCYTES (AUTO) 1.3 10^3/uL (0.5-4.7); ABSOLUTE MONOCYTES (AUTO) 0.4 10^3/uL (0.1-1.4); ABSOLUTE NEUT (AUTO) 4.2 10^3/uL (1.7-8.2); BASOPHILS % (AUTO) 0.5 % (0-2); EOSINOPHILS % (AUTO) 0.8 % (0-6); HEMATOCRIT 39.8 % (36.0-47.0); HEMOGLOBIN 13.4 g/dL (12.0-15.5); LYMPHOCYTES % (AUTO) 21.5 % (13-45); MEAN CORPUSCULAR HEMOGLOBIN 31.3 pg (27.0-33.4); MEAN CORPUSCULAR HGB CONC 33.8 g/dL (32.0-36.0); MEAN CORPUSCULAR VOLUME 93 fl (80-97); MONOCYTES % (AUTO) 6.2 % (3-13); PLATELET COUNT 318 10^3/uL (150-450); RED CELL DISTRIBUTION WIDTH 13.5 % (11.5-14.0); TOTAL CELLS COUNTED % (AUTO) 100 %; WHITE BLOOD COUNT 5.9 10^3/uL (4.0-10.5)
[2017-07-24 11:18] LABS: ALANINE AMINOTRANSFERASE 14 U/L (9-52); ALBUMIN 4.9 g/dL (3.5-5.0); ALKALINE PHOSPHATASE 79 U/L (38-126); ANION GAP 13 (5-19); ASPARTATE AMINO TRANSFERASE 19 U/L (14-36); BILIRUBIN,DIRECT 0.2 mg/dL (0.0-0.4); BILIRUBIN,TOTAL 0.5 mg/dL (0.2-1.3); BLOOD UREA NITROGEN 15 mg/dL (7-20); CARBON DIOXIDE 23 mmol/L (22-30); CHLORIDE 105 mmol/L (98-107); GLUCOSE 99 mg/dL (75-110); POTASSIUM 4.6 mmol/L (3.6-5.0); SODIUM 141.1 mmol/L (137-145); TOTAL PROTEIN 7.3 g/dL (6.3-8.2)
--- NOTE | 2017-07-24 12:07 | RADIOLOGY REPORT (SQ) ---
EXAM DESCRIPTION: CT LTD RENAL STONE PROTOCOL ON COMPLETED DATE/TIME: 07/24/2017 11:48 am REASON FOR STUDY: flank pain COMPARISON: 12/24/2015. TECHNIQUE: CT scan of the abdomen and pelvis performed without intravenous or oral contrast. Images reviewed with lung, soft tissue, and bone windows. Reconstructed coronal and sagittal MPR images revi ewed. All images stored on PACS. All CT scanners at this facility use dose modulation, iterative reconstruction, and/or weight based d osing when appropriate to reduce radiation dose to as low as reasonably achievable (ALARA). [facility]: Dose Right [facility]: CareDose [facility]: Dose Right [facility]: Teradose 4D [facility]: [employer] RADIATION DOSE: CT Rad equipment meets quality standard of care and radiation dose reduction techniq ues were employed. CTDIvol: 4.8 mGy. DLP: 244 mGy-cm.mGy. LIMITATIONS: None. FINDINGS: LOWER CHEST: No significant findings. No nodules or infiltrates. NON-CONTRASTED LIVER, SPLEEN, ADRENALS: Evaluation limited by lack of IV contrast. No identified sign ificant masses. PANCREAS: No masses. No peripancreatic inflammatory changes. GALLBLADDER: No identified stones by CT criteria. No inflammatory changes to suggest cholecystitis. RIGHT KIDNEY AND URETER: No suspicious masses. Assessment limited by lack of IV contrast. 2 mm chandrika ceal calculus in the lower pole. No hydronephrosis or hydroureter. LEFT KIDNEY AND URETER: No suspicious masses. Assessment limited by lack of IV contrast. No signifi cant calcifications. No hydronephrosis or hydroureter. AORTA AND RETROPERITONEUM: No aneurysm. No retroperitoneal masses or adenopathy. BOWEL AND PERITONEAL CAVITY: No obvious masses or inflammatory changes. No free fluid. APPENDIX: Normal. PELVIS, BLADDER, AND ABDOMINAL WALL:No abnormal masses. No free fluid. Bladder normal. BONES: No significant findings. OTHER: No other significant finding. IMPRESSION: 2 MM NONOBSTRUCTING CALYCEAL CALCULUS IN THE LOWER POLE OF THE RIGHT KIDNEY. NO URETERA L CALCULI. NO OTHER SIGNIFICANT OR ACUTE PROCESS IN THE ABDOMEN OR PELVIS. COMMENT: Quality ID # [id number]: Final reports with documentation of one or more dose reduction techniques (e.g., Automated exposure control, adjustment of the mA and/or kV according to patient size, use of iterative reconstruction technique) TECHNICAL DOCUMENTATION: JOB ID: [id number] [employer]- All Rights Reserved
[2017-07-24 12:18] LABS: APPEARANCE,URINE SLIGHTLY-CLOUDY; BILIRUBIN,URINE NEGATIVE (NEGATIVE); COLOR,URINE YELLOW; GLUCOSE, URINE NEGATIVE (NEGATIVE); KETONES,URINE NEGATIVE (NEGATIVE); LEUKOCYTE ESTERASE,URINE TRACE (NEGATIVE); NITRITE,URINE NEGATIVE (NEGATIVE); PROTEIN,URINE 30 mg/dL (NEGATIVE); URINE SPECIFIC GRAVITY 1.019; UROBILINOGEN,URINE NEGATIVE mg/dL (<2.0)
[2017-07-24] MEDS ORDERED: MORPHINE SULFATE 10 MG/ML INJ IV ONE (12:22)
[2017-07-24 12:48] VITALS: BP 106/62
== END 2017-07-24 12:54 | disposition home or self-care (01) ==
LOC: ER 09:25
DX: N20.0 Calculus of kidney (principal); N12 Tubulo-interstitial nephritis, not specified as acute or chronic; M79.1 Myalgia; M54.5 Low back pain; F17.200 Nicotine dependence, unspecified, uncomplicated; E11.9 Type 2 diabetes mellitus without complications; Z88.1 Allergy status to other antibiotic agents; Z88.0 Allergy status to penicillin; Z88.8 Allergy status to other drugs, medicaments and biological substances; Z86.14 Personal history of Methicillin resistant Staphylococcus aureus infection
CPT/HCPCS: 99284; 96361; 96374; 36415; 84703; 85025; 81025; 80053; 81001; 76380; J1885; J7030

== ENCOUNTER 2017-09-08 19:11 | Emergency (ER) | payer SELFPAY ==
[2017-09-08] MEDS ORDERED: CEPHALEXIN 500 MG CAPSULE PO ONE (21:13)
[2017-09-08] MEDS ORDERED: BUPIVACAINE HCL 0.5 % INJ/PF 30 ML SDV INJ ONE (21:13)
--- NOTE | 2017-09-08 21:15 | ER Document Report ---
HPI - HPI Pain Level: 5 Context: Patient is a 32-year-old female presents emergency department complaining of left upper tooth pain got worse over the past 2 days. She states she had a tooth cleaning 3 weeks ago and was told at that time that she has a loose filling of a left upper tooth. Since her cleaning she has had pain 1/5 in severity but worse over the past 2 days. Has been taking Tylenol Motrin at home and BC powder. She denies any facial swelling, fell odor or foul drainage, difficulty swallowing, difficulty breathing. Last menstrual period 1 week ago - REPRODUCTIVE Reproductive: DENIES: : Past Medical History - Social History Smoking Status: Current Every Day Smoker Chew tobacco use (# tins/day): No Frequency of alcohol use: None Drug Abuse: None Family History: Reviewed & Not Pertinent, Arthritis, CAD, CVA, DM, Hyperlipidemia, Hypertension, Malignancy, Thyroid Disfunction Patient has suicidal ideation: No Patient has homicidal ideation: No - Past Medical History Cardiac Medical History: Reports: Hx Heart Murmur Neurological Medical History: Reports: Hx Migraine, Hx Seizures - last seizure 3 months ago - states is not on any anti-convulsant medication Endocrine Medical History: Reports: Hx Diabetes Mellitus Type 2, Hx Hyperthyroidism Renal/ Medical History: Reports: Hx Ectopic , Hx Kidney Stones, Hx Ovarian Cysts. Denies: Hx Peritoneal Dialysis, Hx Pelvic Inflammatory Disease Musculoskeltal Medical History: Reports Hx Musculoskeletal Deformity, Reports Hx Musculoskeletal Trauma Skin Medical History: Reports Hx MRSA Psychiatric Medical History: Reports: Hx Attention Deficit Hyperactivity Disorder Traumatic Medical History: Reports: Hx Fractures - clavicle ribs arm nose Infectious Medical History: Reports: Hx MRSA Past Surgical History: Reports: Hx Section, Hx Gynecologic Surgery - tubal ligation, Hx Nose Surgery, Hx Tubal Ligation - Immunizations Hx Diphtheria, Pertussis, Tetanus Vaccination: Yes - december 11 2015 Vertical Provider Document - CONSTITUTIONAL Agree With Documented VS: Yes Notes: PHYSICAL EXAM GENERAL: Alert, interacts well. HEENT: NCAT, pale conjunctiva, extraocular movements intact, pupils PERRL. MMM, Uvula midline. dental filling in tooth 15 without swelling/abscess Airway patent. No evidence of tonsillar enlargement, peritonsillar abscess, retropharyngeal abscess. NEUROLOGICAL: Alert and oriented x4. Normal speech. PSYCH: Normal affect, normal mood. SKIN: Warm, dry, normal turgor. No rashes or lesions noted. - INFECTION CONTROL TRAVEL OUTSIDE OF THE [place] IN LAST 30 DAYS: No Course - Re-evaluation Re-evalutation: 09/08/17 21:15 Patient is a 32 year old female who is HDS, NAD and afebrile. Presentation is most consistent with likely an infected tooth. Airway is patent. Vitals within normal limits. Patient is able swallow without any difficulty. There is no significant facial swelling. Patient will be started on antibiotics. She had complete resolution of her pain after infraalveolar dental block. I've instructed to follow-up with dentistry as earliest ability for definitive management. Return precautions and follow-up recommendations have been discussed at length. - Vital Signs Vital signs: Temp Pulse Resp BP Pulse Ox 98.6 F 67 16 127/73 H 100 09/08/17 19:36 09/08/17 19:36 09/08/17 19:36 09/08/17 19:36 09/08/17 19:36 Procedures - Additional Procedures dental block Additional Procedures: Other - Patient had a left upper jaw inferior alveolar dental block utilizing 5cc of 0.5% bupivacaine with complete resolution of her symptoms and no complications Discharge - Discharge Clinical Impression: Toothache Condition: Good Disposition: HOME, SELF-CARE Additional Instructions: You have been seen for dental pain. It is very important that you follow-up with a dentist for definitive care. Please return if you develop fever greater than 101, swelling in your face, vomiting, difficulty breathing or swallowing, or any other symptoms that are concerning to you. For pain you should take ibuprofen 600 mg every 6 hours as needed. Prescriptions: Cephalexin Monohydrate [Keflex 500 mg Capsule] 500 mg PO Q6H 7 Days capsule
[2017-09-08 21:40] VITALS: BP 122/75
== END 2017-09-08 21:44 | disposition home or self-care (01) ==
LOC: ER 19:11
DX: K08.89 Other specified disorders of teeth and supporting structures (principal); F17.200 Nicotine dependence, unspecified, uncomplicated; E11.9 Type 2 diabetes mellitus without complications
CPT/HCPCS: 99282; 64400; J3490

== ENCOUNTER 2017-09-11 12:41 | Emergency (ER) | payer SELFPAY ==
[2017-09-11] MEDS ORDERED: ACTIVATED CHARCOAL 25 GM BOTTLE PO ONE (12:57)
--- NOTE | 2017-09-11 13:00 | ER Document Report ---
ED Medical Screen (RME) - General Chief Complaint: Accidental Overdose Stated Complaint: POSSIBLE OVERDOSE Time Seen by Provider: 09/11/17 12:50 Notes: This 32-year-old female patient reports taking between 8 and 10 Concerta tablets about 40 minutes ago. She was seen here 4 days ago with a toothache. She reports she said a friend to her car to get ibuprofen and the person brought back Concerta. They were both small red pills. She reports taking 8- 10 at one time. She states she did not know this was Concerta, and she was going to take the excessive dose of ibuprofen due to the pain from the toothache. As the patient reports the ingestion was 40 minutes ago, I immediately order an oral dose of activated charcoal. I have greeted and performed a rapid initial assessment of this patient. A comprehensive ED assessment and evaluation of the patient, analysis of test results and completion of the medical decision making process will be conducted by additional ED providers. TRAVEL OUTSIDE OF THE [place] IN LAST 30 DAYS: No - Related Data Allergies/Adverse Reactions: phenytoin sodium [From Dilantin] Allergy (Severe, Verified 07/24/17 09:44) Seizures phenytoin sodium extended [From Dilantin] Allergy (Severe, Verified 07/24/17 09: 44) Seizures amoxicillin [Amoxicillin] Allergy (Mild, Verified 07/24/17 09:44) Urticaria ciprofloxacin [Ciprofloxacin] Allergy (Mild, Verified 07/24/17 09:44) Urticaria Penicillins Allergy (Mild, Verified 07/24/17 09:44) Urticaria Past Medical History - Social History Chew tobacco use (# tins/day): No Frequency of alcohol use: Occasional Drug Abuse: None - Past Medical History Cardiac Medical History: Reports: Hx Heart Murmur Neurological Medical History: Reports: Hx Migraine, Hx Seizures - last seizure 3 months ago - states is not on any anti-convulsant medication Endocrine Medical History: Reports: Hx Diabetes Mellitus Type 2, Hx Hyperthyroidism Renal/ Medical History: Reports: Hx Ectopic , Hx Kidney Stones, Hx Ovarian Cysts. Denies: Hx Peritoneal Dialysis, Hx Pelvic Inflammatory Disease Musculoskeltal Medical History: Reports Hx Musculoskeletal Deformity, Reports Hx Musculoskeletal Trauma Skin Medical History: Reports Hx MRSA Psychiatric Medical History: Reports: Hx Attention Deficit Hyperactivity Disorder Traumatic Medical History: Reports: Hx Fractures - clavicle ribs arm nose Infectious Medical History: Reports: Hx MRSA Past Surgical History: Reports: Hx Section, Hx Gynecologic Surgery - tubal ligation, Hx Nose Surgery, Hx Tubal Ligation - Immunizations Hx Diphtheria, Pertussis, Tetanus Vaccination: Yes - december 11 2015 Physical Exam - Vital signs Vitals: Temp Pulse Resp BP Pulse Ox 98.4 F 103 H 18 145/86 H 99 09/11/17 12:46 09/11/17 12:46 09/11/17 12:46 09/11/17 12:46 09/11/17 12:46 Course - Vital Signs Vital signs: Temp Pulse Resp BP Pulse Ox 98.4 F 103 H 18 145/86 H 99 09/11/17 12:46 09/11/17 12:46 09/11/17 12:46 09/11/17 12:46 09/11/17 12:46
[2017-09-11] MEDS ORDERED: NORMAL SALINE 1000 ML 2,000 ML IV ONE (13:36)
[2017-09-11 13:38] LABS: ABSOLUTE EOSINOPHILS # (AUTO) 0.1 10^3/uL (0.0-0.6); ABSOLUTE MONOCYTES (AUTO) 0.3 10^3/uL (0.1-1.4); BASOPHILS % (AUTO) 0.5 % (0-2); EOSINOPHILS % (AUTO) 1.1 % (0-6); HEMATOCRIT 37.5 % (36.0-47.0); HEMOGLOBIN 12.7 g/dL (12.0-15.5); LYMPHOCYTES % (AUTO) 27.6 % (13-45); MEAN CORPUSCULAR HEMOGLOBIN 31.6 pg (27.0-33.4); MEAN CORPUSCULAR HGB CONC 33.8 g/dL (32.0-36.0); MEAN CORPUSCULAR VOLUME 93 fl (80-97); MONOCYTES % (AUTO) 3.9 % (3-13); PLATELET COUNT 318 10^3/uL (150-450); RED BLOOD COUNT 4.02 10^6/uL (3.72-5.28); RED CELL DISTRIBUTION WIDTH 13.4 % (11.5-14.0); SEGMENTED NEUTROPHILS % (AUTO) 66.9 % (42-78); TOTAL CELLS COUNTED % (AUTO) 100 %; WHITE BLOOD COUNT 7.4 10^3/uL (4.0-10.5)
[2017-09-11] MEDS ORDERED: LORAZEPAM INJ 2 MG/1 ML VIAL IV ONE ×2 (13:38→15:17)
--- NOTE | 2017-09-11 13:44 | ER Document Report ---
ED General - General Chief Complaint: Accidental Overdose Stated Complaint: POSSIBLE OVERDOSE Time Seen by Provider: 09/11/17 12:50 Mode of Arrival: Ambulatory Information source: Patient Notes: Patient is a 32-year-old female who presents to the ER today for accidental overdose of Concerta 54 mg. Patient states that she was at work whenever she was having a bad toothache, asked 1 of her friends to run out to her car and get her 200 mg ibuprofen. She did ask for a handful of them. Her friend went out to her car, accidentally grabbed the wrong bottle and brought her 8-10 capsules of Concerta instead. Patient did not realize this until after she taken it and started having palpitations, went to her car and looked at the bottles. Patient states that she does not keep labels on the bottles in her car as she is not allowed to have the original bottles at work, so she keeps it in unlabeled bottles. Patient states that she meant to take 8-10 of ibuprofen. She is admitting the palpitations at this time, and denies any chest pain, nausea, vomiting, shortness of breath or other symptoms.She states that the Concerta was her daughter's. She denies any suicidal or homicidal ideations, She denies that this was intentional. TRAVEL OUTSIDE OF THE [place] IN LAST 30 DAYS: No - Related Data Allergies/Adverse Reactions: phenytoin sodium [From Dilantin] Allergy (Severe, Verified 07/24/17 09:44) Seizures phenytoin sodium extended [From Dilantin] Allergy (Severe, Verified 07/24/17 09: 44) Seizures amoxicillin [Amoxicillin] Allergy (Mild, Verified 07/24/17 09:44) Urticaria ciprofloxacin [Ciprofloxacin] Allergy (Mild, Verified 07/24/17 09:44) Urticaria Penicillins Allergy (Mild, Verified 07/24/17 09:44) Urticaria Past Medical History - General Information source: Patient - Social History Smoking Status: Current Every Day Smoker Chew tobacco use (# tins/day): No Frequency of alcohol use: Occasional Drug Abuse: None Family History: Reviewed & Not Pertinent, Arthritis, CAD, CVA, DM, Hyperlipidemia, Hypertension, Malignancy, Thyroid Disfunction Patient has suicidal ideation: No Patient has homicidal ideation: No - Past Medical History Cardiac Medical History: Reports: Hx Heart Murmur Neurological Medical History: Reports: Hx Migraine, Hx Seizures - last seizure 3 months ago - states is not on any anti-convulsant medication Endocrine Medical History: Reports: Hx Diabetes Mellitus Type 2, Hx Hyperthyroidism Renal/ Medical History: Reports: Hx Ectopic , Hx Kidney Stones, Hx Ovarian Cysts. Denies: Hx Peritoneal Dialysis, Hx Pelvic Inflammatory Disease Musculoskeltal Medical History: Reports Hx Musculoskeletal Deformity, Reports Hx Musculoskeletal Trauma Skin Medical History: Reports Hx MRSA Psychiatric Medical History: Reports: Hx Attention Deficit Hyperactivity Disorder Traumatic Medical History: Reports: Hx Fractures - clavicle ribs arm nose Infectious Medical History: Reports: Hx MRSA Past Surgical History: Reports: Hx Section, Hx Gynecologic Surgery - tubal ligation, Hx Nose Surgery, Hx Tubal Ligation - Immunizations Hx Diphtheria, Pertussis, Tetanus Vaccination: Yes - december 11 2015 Review of Systems - Review of Systems Constitutional: No symptoms reported EENT: No symptoms reported Cardiovascular: See HPI Respiratory: No symptoms reported Gastrointestinal: No symptoms reported Genitourinary: No symptoms reported Female Genitourinary: No symptoms reported Musculoskeletal: No symptoms reported Skin: No symptoms reported Hematologic/Lymphatic: No symptoms reported Neurological/Psychological: See HPI Physical Exam - Vital signs Vitals: Temp Pulse Resp BP Pulse Ox 98.4 F 103 H 18 145/86 H 99 09/11/17 12:46 09/11/17 12:46 09/11/17 12:46 09/11/17 12:46 09/11/17 12:46 - Notes Notes: PHYSICAL EXAMINATION: GENERAL:Slightly anxious, but in no acute distress. HEAD: Atraumatic, normocephalic. EYES: Pupils equal round and reactive to light, extraocular movements intact, sclera anicteric, conjunctiva are normal. ENT: ear canals without erythema or foreign body, TMs pearly haile with good bony landmarks, nares patent, oropharynx clear without exudates. Moist mucous membranes. NECK: Normal range of motion, supple without lymphadenopathy LUNGS: CTAB and equal. No wheezes rales or rhonchi. HEART: Tachycardic with regular rhythm without murmurs ABDOMEN: Soft, no tenderness. No guarding, no rebound BACK: no vertebral tenderness, normal ROM GI/: no CVA tenderness EXTREMITIES: Normal range of motion, no pitting edema. No cyanosis. NEUROLOGICAL: Cranial nerves grossly intact. Normal sensory/motor exams. PSYCH: Normal mood, normal affect. SKIN: Warm, Dry, normal turgor, no rashes or lesions noted Course - Re-evaluation Re-evalutation: 09/11/17 13:40 I spoke with poison control, Ghazala, who advises at least a 12 hour observation, IV fluids and benzodiazepines as mainstay of treatment for Concerta overdose. Patient is very well at this time, sitting up, smiling, stating "I cannot believe I did this" patient denies suicidal or homicidal ideations. 09/11/17 16:18 pt wants to sign out AMA, she feels fine, vitals have been all within normal limits,. Patient does not want to wait the full 12 hours that tachycardia resolved poison control advises. I did advise her to stay for observation, she declines again. Her heart rate has been in the 60s for the last 2-3 hours. 09/12/17 08:22 - Vital Signs Vital signs: Temp Pulse Resp BP Pulse Ox 98.4 F 103 H 19 132/79 H 100 09/11/17 12:46 09/11/17 12:46 09/11/17 16:01 09/11/17 16:01 09/11/17 16:01 - Laboratory Result Diagrams: 09/11/17 13:17 09/11/17 13:17 Laboratory results interpreted by me: 09/11/17 13:17 Urine Protein 30 H Urine Blood SMALL H Ur Leukocyte Esterase LARGE H Discharge - Discharge Clinical Impression: Accidental overdose Qualifiers: Encounter type: initial encounter Qualified Code(s): T50.901A - Poisoning by unspecified drugs, medicaments and biological substances, accidental ( unintentional), initial encounter Condition: Stable Disposition: AGAINST MEDICAL ADVICE Additional Instructions: Please only take 800 mg of ibuprofen at a time for your toothache, please do not intentionally take more medication than on the bottle or prescribed. Return immediately for any new or worsening symptoms. Follow up with primary care provider, call tomorrow to make followup appointment.
[2017-09-11 13:50] LABS: APPEARANCE,URINE CLOUDY; BILIRUBIN,URINE NEGATIVE (NEGATIVE); COLOR,URINE YELLOW; GLUCOSE, URINE NEGATIVE (NEGATIVE); KETONES,URINE NEGATIVE (NEGATIVE); LEUKOCYTE ESTERASE,URINE LARGE (NEGATIVE); NITRITE,URINE NEGATIVE (NEGATIVE); PROTEIN,URINE 30 mg/dL (NEGATIVE); URINE SPECIFIC GRAVITY 1.035; UROBILINOGEN,URINE NEGATIVE mg/dL (<2.0)
[2017-09-11 13:53] LABS: ALANINE AMINOTRANSFERASE 23 U/L (9-52); ALBUMIN 4.7 g/dL (3.5-5.0); ALKALINE PHOSPHATASE 63 U/L (38-126); ANION GAP 10 (5-19); ASPARTATE AMINO TRANSFERASE 16 U/L (14-36); BILIRUBIN,DIRECT 0.2 mg/dL (0.0-0.4); BILIRUBIN,TOTAL 0.4 mg/dL (0.2-1.3); BLOOD UREA NITROGEN 14 mg/dL (7-20); CALCIUM 10.1 mg/dL (8.4-10.2); CARBON DIOXIDE 25 mmol/L (22-30); CHLORIDE 105 mmol/L (98-107); GLUCOSE 91 mg/dL (75-110); POTASSIUM 3.9 mmol/L (3.6-5.0); SODIUM 139.7 mmol/L (137-145); TOTAL PROTEIN 6.7 g/dL (6.3-8.2)
[2017-09-11 14:02] LABS: URINE AMPHETAMINES SCREEN NEGATIVE; URINE BARBITURATES SCREEN NEGATIVE; URINE BENZODIAZEPINES SCREEN NEGATIVE; URINE COCAINE SCREEN NEGATIVE; URINE MARIJUANA (THC) SCREEN NEGATIVE; URINE METHADONE SCREEN NEGATIVE; URINE PHENCYCLIDINE SCREEN NEGATIVE
[2017-09-11 17:04] VITALS: BP 132/79
--- NOTE | 2017-09-11 19:13 | EKG REPORT ---
SEVERITY:- ABNORMAL ECG - SINUS RHYTHM ACCELERATED AV CONDUCTION : Confirmed by: Cedric Bryant MD 11-Sep-2017 19:12:51
== END 2017-09-11 17:04 | disposition left against medical advice (07) ==
LOC: ER 12:41
DX: T43.631A Poisoning by methylphenidate, accidental (unintentional), initial encounter (principal); K08.9 Disorder of teeth and supporting structures, unspecified; X58.XXXA Exposure to other specified factors, initial encounter; F17.200 Nicotine dependence, unspecified, uncomplicated; E11.9 Type 2 diabetes mellitus without complications; Z88.0 Allergy status to penicillin; Z88.3 Allergy status to other anti-infective agents; Z87.442 Personal history of urinary calculi; Z86.14 Personal history of Methicillin resistant Staphylococcus aureus infection; Z98.51 Tubal ligation status
CPT/HCPCS: 93005; 96376; 99284; 96361; 96374; 36415; 84703; 85025; 80053; 81001; 80307; 93010; J2060; J7030; J3490

== ENCOUNTER 2017-09-12 08:17 | Emergency (ER) | payer SELFPAY ==
[2017-09-12] MEDS ORDERED: LORAZEPAM 1 MG TABLET PO ONE (08:49)
[2017-09-12] MEDS ORDERED: ONDANSETRON 4 MG TAB.RAPDIS PO ONE (08:49)
--- NOTE | 2017-09-12 09:17 | ER Document Report ---
ED General - General Chief Complaint: Tremor Stated Complaint: BODY SHAKING Time Seen by Provider: 09/12/17 08:47 Mode of Arrival: Ambulatory Information source: Patient, Relative Notes: 32-year-old female with a history of epilepsy, migraine headaches presents for the second day in a row with complaints of nausea, anxiousness, chest pain. Patient was seen yesterday in the emergency department after taking 8-10 Concerta pills. She states it was an accidental ingestion and she thought she was taking Motrin. She states that she felt well after her treatment in the emergency department yesterday and left AGAINST MEDICAL ADVICE prior to the advised observation time. She states when she got home she began developing chest pain and became more tremulous and began vomiting. Concerta is extended release and poison control did advise that she could have symptoms several hours after ingestion. Patient states the pills were her daughters and they were in an unmarked bottle. TRAVEL OUTSIDE OF THE [place] IN LAST 30 DAYS: No - HPI Onset: Yesterday Onset/Duration: Intermittent Quality of pain: No pain Severity: None Associated symptoms: Chest pain, Headache, Nausea, Vomiting Exacerbated by: Denies Relieved by: Denies Similar symptoms previously: Yes Recently seen / treated by doctor: Yes - 09/11/2017 - Related Data Allergies/Adverse Reactions: phenytoin sodium [From Dilantin] Allergy (Severe, Verified 09/12/17 08:46) Seizures phenytoin sodium extended [From Dilantin] Allergy (Severe, Verified 09/12/17 08: 46) Seizures amoxicillin [Amoxicillin] Allergy (Mild, Verified 09/12/17 08:46) Urticaria ciprofloxacin [Ciprofloxacin] Allergy (Mild, Verified 09/12/17 08:46) Urticaria Penicillins Allergy (Mild, Verified 09/12/17 08:46) Urticaria Past Medical History - General Information source: Patient - Social History Smoking Status: Current Every Day Smoker Frequency of alcohol use: Social Drug Abuse: None Family History: Reviewed & Not Pertinent, Arthritis, CAD, CVA, DM, Hyperlipidemia, Hypertension, Malignancy, Thyroid Disfunction Patient has suicidal ideation: No Patient has homicidal ideation: No - Past Medical History Cardiac Medical History: Reports: Hx Heart Murmur Neurological Medical History: Reports: Hx Migraine, Hx Seizures - last seizure 3 months ago - states is not on any anti-convulsant medication Endocrine Medical History: Reports: Hx Diabetes Mellitus Type 2, Hx Hyperthyroidism Renal/ Medical History: Reports: Hx Ectopic , Hx Kidney Stones, Hx Ovarian Cysts. Denies: Hx Peritoneal Dialysis, Hx Pelvic Inflammatory Disease Musculoskeltal Medical History: Reports Hx Musculoskeletal Deformity, Reports Hx Musculoskeletal Trauma Skin Medical History: Reports Hx MRSA Psychiatric Medical History: Reports: Hx Attention Deficit Hyperactivity Disorder Traumatic Medical History: Reports: Hx Fractures - clavicle ribs arm nose Infectious Medical History: Reports: Hx MRSA Past Surgical History: Reports: Hx Section - x2, Hx Gynecologic Surgery - tubal ligation, Hx Nose Surgery, Hx Tubal Ligation - Immunizations Hx Diphtheria, Pertussis, Tetanus Vaccination: Yes - december 11 2015 Review of Systems - Review of Systems Constitutional: denies: Chills, Fever EENT: denies: Blurred vision Cardiovascular: Chest pain Respiratory: denies: Short of breath Gastrointestinal: Nausea, Vomiting. denies: Abdominal pain Genitourinary: No symptoms reported Female Genitourinary: No symptoms reported Musculoskeletal: No symptoms reported Skin: No symptoms reported Neurological/Psychological: Anxiety, Tremor Physical Exam - Vital signs Vitals: Temp Pulse Resp BP Pulse Ox 98.8 F 87 14 134/67 H 98 09/12/17 08:23 09/12/17 08:23 09/12/17 08:23 09/12/17 08:23 09/12/17 08:23 Interpretation: Normal. No: Hypertensive, Tachycardic - General General appearance: Appears well, Alert In distress: None - HEENT Head: Normocephalic, Atraumatic Eyes: Normal Pupils: PERRL Mouth/Lips: Caries Mucous membranes: Normal Neck: Normal - Respiratory Respiratory status: No respiratory distress. No: Respiratory distress Chest status: Nontender. No: Pain with deep breathing Breath sounds: Normal Chest palpation: Normal - Cardiovascular Rhythm: Regular. No: Tachycardia Heart sounds: Normal auscultation Murmur: No Pulses: Normal: Radial, Dorsalis pedis Normal capillary refill: Yes - Neurological Neuro grossly intact: Yes Cognition: Normal Orientation: AAOx4 [place] Coma Scale Eye Opening: Spontaneous [place] Coma Scale Verbal: Oriented [place] Coma Scale Motor: Obeys Commands [place] Coma Scale Total: 15 Speech: Normal Cranial nerves: Normal Cerebellar coordination: Normal Motor strength normal: LUE, RUE, LLE, RLE Additional motor exam normals: Equal shellacker Sensory: Normal - Psychological Associated symptoms: Normal mood, Anxious Course - Vital Signs Vital signs: Temp Pulse Resp BP Pulse Ox 98.2 F 70 18 118/72 99 09/12/17 10:00 09/12/17 10:00 09/12/17 10:00 09/12/17 10:00 09/12/17 10:00 Discharge - Discharge Clinical Impression: Headache Qualifiers: Headache type: unspecified Headache chronicity pattern: episodic headache Intractability: not intractable Qualified Code(s): R51 - Headache Accidental drug ingestion Qualifiers: Encounter type: subsequent encounter Qualified Code(s): T50.901D - Poisoning by unspecified drugs, medicaments and biological substances, accidental ( unintentional), subsequent encounter Condition: Good Disposition: HOME, SELF-CARE Instructions: Headache ([facility]), Instructions for Home Care Following a Drug Overdose ([facility])
--- NOTE | 2017-09-12 09:46 | EKG REPORT ---
SEVERITY:- BORDERLINE ECG - SINUS RHYTHM SHORT NC INTERVAL, ACCELERATED AV CONDUCTION : Confirmed by: Lilian Sanchez 12-Sep-2017 09:46:14
[2017-09-12 09:52] LABS: URINE AMPHETAMINES SCREEN NEGATIVE; URINE BARBITURATES SCREEN NEGATIVE; URINE BENZODIAZEPINES SCREEN NEGATIVE; URINE COCAINE SCREEN NEGATIVE; URINE MARIJUANA (THC) SCREEN NEGATIVE; URINE METHADONE SCREEN NEGATIVE; URINE PHENCYCLIDINE SCREEN NEGATIVE
[2017-09-12 10:00] VITALS: BP 118/72
[2017-09-12] MEDS ORDERED: ACETAMINOPHEN 325 MG TABLET PO ONE (10:03)
== END 2017-09-12 10:16 | disposition home or self-care (01) ==
LOC: ER 08:17
DX: T43.631A Poisoning by methylphenidate, accidental (unintentional), initial encounter (principal); R51 Headache; R11.2 Nausea with vomiting, unspecified; R07.9 Chest pain, unspecified; F41.9 Anxiety disorder, unspecified; R25.1 Tremor, unspecified; E11.9 Type 2 diabetes mellitus without complications; K02.9 Dental caries, unspecified; F17.200 Nicotine dependence, unspecified, uncomplicated; Z88.0 Allergy status to penicillin; Z88.1 Allergy status to other antibiotic agents
CPT/HCPCS: 93005; 99284; 80307; 93010; S0119

== ENCOUNTER 2017-11-30 12:29 | Emergency (ER) | payer SELFPAY ==
[2017-11-30] MEDS ORDERED: NAPROXEN 250 MG TABLET PO ONE (12:46)
--- NOTE | 2017-11-30 12:49 | ER Document Report ---
ED GI/ - General Chief Complaint: Flank Pain Stated Complaint: FLANK PAIN Time Seen by Provider: 11/30/17 12:46 Notes: The patient is a 32-year-old female, past medical history multiple kidney infections, history of kidney stones, presents with 1 week of worsening bilateral flank pain and dysuria. She says the pain is constant and feels more similar to kidney infection that her kidney stones in the past. She tried AZO without much relief of her symptoms. Denies fevers, nausea, vomiting, diarrhea , constipation, chest pain or shortness of breath. TRAVEL OUTSIDE OF THE [place] IN LAST 30 DAYS: No - Related Data Allergies/Adverse Reactions: phenytoin sodium [From Dilantin] Allergy (Severe, Verified 11/30/17 12:42) Seizures phenytoin sodium extended [From Dilantin] Allergy (Severe, Verified 11/30/17 12: 42) Seizures amoxicillin [Amoxicillin] Allergy (Mild, Verified 11/30/17 12:42) Urticaria ciprofloxacin [Ciprofloxacin] Allergy (Mild, Verified 11/30/17 12:42) Urticaria Penicillins Allergy (Mild, Verified 11/30/17 12:42) Urticaria Past Medical History - General Information source: Patient - Social History Smoking Status: Current Every Day Smoker Chew tobacco use (# tins/day): No Frequency of alcohol use: Occasional Drug Abuse: None Family History: Reviewed & Not Pertinent, Arthritis, CAD, CVA, DM, Hyperlipidemia, Hypertension, Malignancy, Thyroid Disfunction Patient has suicidal ideation: No Patient has homicidal ideation: No - Past Medical History Cardiac Medical History: Reports: Hx Heart Murmur Neurological Medical History: Reports: Hx Migraine, Hx Seizures - last seizure 3 months ago - states is not on any anti-convulsant medication Endocrine Medical History: Reports: Hx Diabetes Mellitus Type 2, Hx Hyperthyroidism Renal/ Medical History: Reports: Hx Ectopic , Hx Kidney Stones, Hx Ovarian Cysts. Denies: Hx Peritoneal Dialysis, Hx Pelvic Inflammatory Disease Musculoskeltal Medical History: Reports Hx Musculoskeletal Deformity, Reports Hx Musculoskeletal Trauma Skin Medical History: Reports Hx MRSA Psychiatric Medical History: Reports: Hx Attention Deficit Hyperactivity Disorder Traumatic Medical History: Reports: Hx Fractures - clavicle ribs arm nose Infectious Medical History: Reports: Hx MRSA Past Surgical History: Reports: Hx Section - x2, Hx Gynecologic Surgery - tubal ligation, Hx Nose Surgery, Hx Tubal Ligation - Immunizations Hx Diphtheria, Pertussis, Tetanus Vaccination: Yes - december 11 2015 Review of Systems - Review of Systems Notes: REVIEW OF SYSTEMS: CONSTITUTIONAL: -fevers, -chills EENT: -eye pain, -difficulty swallowing, -nasal congestion CARDIOVASCULAR: -chest pain, -syncope. RESPIRATORY: -cough, -SOB GASTROINTESTINAL: -abdominal pain, -nausea, -vomiting, -diarrhea GENITOURINARY: +dysuria, -hematuria MUSCULOSKELETAL: +B/L flank pain, -neck pain SKIN: -rash or skin lesions. HEMATOLOGIC: -easy bruising or bleeding. LYMPHATIC: -swollen, enlarged glands. NEUROLOGICAL: -altered mental status or loss of consciousness, -headache, - neurologic symptoms PSYCHIATRIC: -anxiety, -depression. ALL OTHER SYSTEMS REVIEWED AND NEGATIVE. Physical Exam - Vital signs Vitals: Temp Pulse Resp BP Pulse Ox 98.6 F 80 18 131/73 H 100 11/30/17 12:33 11/30/17 12:33 11/30/17 12:33 11/30/17 12:33 11/30/17 12:33 - Notes Notes: PHYSICAL EXAMINATION: GENERAL: Well-appearing, well-nourished and in no acute distress. HEAD: Atraumatic, normocephalic. EYES: Pupils equal round and reactive to light, extraocular movements intact, sclera anicteric, conjunctiva are normal. ENT: nares patent, oropharynx clear without exudates. Moist mucous membranes. NECK: Normal range of motion, supple without lymphadenopathy LUNGS: Breath sounds clear to auscultation bilaterally and equal. No wheezes rales or rhonchi. HEART: Regular rate and rhythm without murmurs ABDOMEN: Soft, mild suprapubic tender, normoactive bowel sounds. No guarding, no rebound. No masses appreciated. BACK: B/L CVA tenderness. EXTREMITIES: Normal range of motion, no pitting or edema. No cyanosis. NEUROLOGICAL: Cranial nerves grossly intact. Normal speech, normal gait. Normal sensory and motor exams. PSYCH: Normal mood, normal affect. SKIN: Warm, Dry, normal turgor, no rashes or lesions noted. Course - Re-evaluation Re-evalutation: Patient appears well. She has signs and symptoms of pyelonephritis. Her symptoms are atypical for kidney stones at this time. Looking through old culture results, will begin her on Bactrim due to her allergies. Instructed her to follow-up with her primary care physician and given urology f/u due to frequent UTIs and pyelonephritis. Given very strict return precautions and she understands. - Vital Signs Vital signs: Temp Pulse Resp BP Pulse Ox 98.6 F 80 18 131/73 H 100 11/30/17 12:33 11/30/17 12:33 11/30/17 12:33 11/30/17 12:33 11/30/17 12:33 - Laboratory Laboratory results interpreted by me: 11/30/17 13:00 Urine Blood SMALL H Urine Nitrite POSITIVE H Urine Urobilinogen 2.0 H Ur Leukocyte Esterase TRACE H Discharge - Discharge Clinical Impression: Pyelonephritis Condition: Stable Disposition: HOME, SELF-CARE Additional Instructions: PYELONEPHRITIS: Your evaluation shows evidence of pyelonephritis. This is an infection in the kidney. Typical symptoms are fever, pain in the flank, pain on urination, and frequent urination. Many cases of pyelonephritis can be treated at home. Hospital care may be necessary for patients who are very ill, or elderly or . Pyelonephritis is treated with antibiotics. Be sure to take all the medication as prescribed. Drink plenty of liquids (about three quarts per day) . You may take acetaminophen for fever. You should feel significantly improved within two days. You should have a recheck of your urine in about one week to insure that the infection is gone. Return for a re-examination if your symptoms worsen in any way -- such as high fever, shaking chills, severe weakness or dizziness, severe pain, or inability to pass your urine. ANTIBIOTIC THERAPY: You have been given an antibiotic prescription. It's important that you take all the medication, unless instructed otherwise by your physician. Failure to complete the entire course can result in relapse of your condition. Common side effects of antibiotics include nausea, intestinal cramping, or diarrhea. Women may develop vaginal yeast infections, and babies can get yeast (thrush) in the mouth following the use of antibiotics. Contact your physician if you develop significant side effects from this medication. Allergy to this antibiotic can result in hives, wheezing, faintness, or itching. If symptoms of allergy occur, stop the medication and call the doctor. TRIMETHOPRIM-SULFA: You have been given a prescription for trimethoprim-sulfa (TMS, Septra, Bactrim). This is a combination antibiotic of the sulfa class, often used for urinary tract infections, middle ear infections, bronchitis, shigella intestinal infection, and Pneumocystis pneumonia. TMS is usually well-tolerated. Occasional side effects include nausea and decreased appetite. Septra is not recommended for infants less than two months of age. Do not take this medication if you have experienced severe side effects or allergy to sulfa medicine. You should stop this medicine at once and contact your physician if you develop any rash, joint pain, shortness of breath, bruising, or jaundice ( yellow color in the skin), or if you develop any other new or unusual symptoms. USE OF ACETAMINOPHEN (Tylenol): Acetaminophen may be taken for pain relief or fever control. It's much safer than aspirin, offering a wider range of "safe" dosages. It is safe during . Some brand names are Tylenol, Panadol, Datril, Anacin 3, Tempra, and Liquiprin. Acetaminophen can be repeated every four hours. The following are maximum recommended dosages: >89 pounds or adults 650 mg to 900 mg Acetaminophen can be repeated every four hours. Maximum dose not to exceed 4000 mg a day. FOLLOW-UP CARE: If you have been referred to a physician for follow-up care, call the physician s office for an appointment as you were instructed or within the next two days. If you experience worsening or a significant change in your symptoms, notify the physician immediately or return to the Emergency Department at any time for re-evaluation. Prescriptions: Ondansetron [Zofran Odt 4 mg Tablet] 1 - 2 tab PO Q4H PRN #15 tab.rapdis PRN Reason: For Nausea/Vomiting Sulfamethoxazole/Trimethoprim [Bactrim Ds Tablet] 1 each PO Q12H #20 tablet Forms: Elevated Blood Pressure Referrals: [facility] [Provider Group] - Follow up as needed
[2017-11-30 13:17] LABS: AMORPHOUS SEDIMENT,URINE TRACE /HPF; APPEARANCE,URINE CLOUDY; BILIRUBIN,URINE NEGATIVE (NEGATIVE); COLOR,URINE YELLOW; GLUCOSE, URINE NEGATIVE (NEGATIVE); KETONES,URINE NEGATIVE (NEGATIVE); LEUKOCYTE ESTERASE,URINE TRACE (NEGATIVE); NITRITE,URINE POSITIVE (NEGATIVE); PROTEIN,URINE NEGATIVE (NEGATIVE); URINE SPECIFIC GRAVITY 1.017
[2017-11-30 13:32] VITALS: BP 115/67
== END 2017-11-30 13:27 | disposition home or self-care (01) ==
LOC: ER 12:29
DX: N12 Tubulo-interstitial nephritis, not specified as acute or chronic (principal); F17.200 Nicotine dependence, unspecified, uncomplicated; E11.9 Type 2 diabetes mellitus without complications; Z88.8 Allergy status to other drugs, medicaments and biological substances; Z88.0 Allergy status to penicillin; Z88.1 Allergy status to other antibiotic agents; Z87.442 Personal history of urinary calculi
CPT/HCPCS: 81001; 81025; 99284

== ENCOUNTER 2018-05-11 13:09 | Emergency (ER) | payer MEDICAID ==
--- NOTE | 2018-05-11 13:41 | EKG REPORT ---
SEVERITY:- ABNORMAL ECG - SINUS RHYTHM LEFT ATRIAL ABNORMALITY : Confirmed by: Cedric Bryant MD 11-May-2018 13:39:33
[2018-05-11] MEDS ORDERED: ASPIRIN 81 MG TABLET, CHEWABLE PO ONE (14:16)
--- NOTE | 2018-05-11 14:18 | ER Document Report ---
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 With numbness and tingling sensation over both fingers. Intensity has gradually subsided. No previous history Normal exam TRAVEL OUTSIDE OF THE [place] IN LAST 30 DAYS: No - Related Data Allergies/Adverse Reactions: phenytoin sodium [From Dilantin] Allergy (Severe, Verified 05/11/18 14:14) Seizures phenytoin sodium extended [From Dilantin] Allergy (Severe, Verified 05/11/18 14: 14) Seizures amoxicillin [Amoxicillin] Allergy (Mild, Verified 05/11/18 14:14) Urticaria ciprofloxacin [Ciprofloxacin] Allergy (Mild, Verified 05/11/18 14:14) Urticaria Penicillins Allergy (Mild, Verified 05/11/18 14:14) Urticaria Past Medical History - Social History Chew tobacco use (# tins/day): No Frequency of alcohol use: Occasional Drug Abuse: None - Past Medical History Cardiac Medical History: Reports: Hx Heart Murmur Neurological Medical History: Reports: Hx Migraine, Hx Seizures - last seizure 3 months ago - states is not on any anti-convulsant medication Endocrine Medical History: Reports: Hx Diabetes Mellitus Type 2, Hx Hyperthyroidism Renal/ Medical History: Reports: Hx Ectopic , Hx Kidney Stones, Hx Ovarian Cysts. Denies: Hx Peritoneal Dialysis, Hx Pelvic Inflammatory Disease Musculoskeltal Medical History: Reports Hx Musculoskeletal Deformity, Reports Hx Musculoskeletal Trauma Skin Medical History: Reports Hx MRSA Psychiatric Medical History: Reports: Hx Attention Deficit Hyperactivity Disorder Traumatic Medical History: Reports: Hx Fractures - clavicle ribs arm nose Infectious Medical History: Reports: Hx MRSA Past Surgical History: Reports: Hx Section - x2, Hx Gynecologic Surgery - tubal ligation, Hx Nose Surgery, Hx Tubal Ligation - Immunizations Hx Diphtheria, Pertussis, Tetanus Vaccination: Yes - december 11 2015 Physical Exam - Vital signs Vitals: Temp Pulse Resp BP Pulse Ox 98.4 F 88 20 115/66 100 05/11/18 13:41 05/11/18 13:41 05/11/18 13:41 05/11/18 13:41 05/11/18 13:41 Course - Vital Signs Vital signs: Temp Pulse Resp BP Pulse Ox 98.4 F 88 20 115/66 100 05/11/18 13:41 05/11/18 13:41 05/11/18 13:41 05/11/18 13:41 05/11/18 13:41 Doctor's Discharge - Discharge Referrals: FARSHAD GARCIA FNP-C [Primary Care Provider] - Follow up as needed
[2018-05-11 14:40] LABS: ABSOLUTE BASOPHILS # (AUTO) 0.1 10^3/uL (0.0-0.2); ABSOLUTE EOSINOPHILS # (AUTO) 0.1 10^3/uL (0.0-0.6); ABSOLUTE LYMPHOCYTES (AUTO) 2.3 10^3/uL (0.5-4.7); ABSOLUTE MONOCYTES (AUTO) 0.4 10^3/uL (0.1-1.4); ABSOLUTE NEUT (AUTO) 6.4 10^3/uL (1.7-8.2); BASOPHILS % (AUTO) 0.6 % (0-2); EOSINOPHILS % (AUTO) 0.8 % (0-6); HEMATOCRIT 38.9 % (36.0-47.0); HEMOGLOBIN 13.3 g/dL (12.0-15.5); MEAN CORPUSCULAR HEMOGLOBIN 31.5 pg (27.0-33.4); MEAN CORPUSCULAR VOLUME 93 fl (80-97); MONOCYTES % (AUTO) 4.5 % (3-13); PLATELET COUNT 381 10^3/uL (150-450); RED CELL DISTRIBUTION WIDTH 13.4 % (11.5-14.0); SEGMENTED NEUTROPHILS % (AUTO) 69.1 % (42-78); TOTAL CELLS COUNTED % (AUTO) 100 %; WHITE BLOOD COUNT 9.3 10^3/uL (4.0-10.5)
[2018-05-11 15:03] LABS: ALANINE AMINOTRANSFERASE 24 U/L (9-52); ALBUMIN 4.7 g/dL (3.5-5.0); ALKALINE PHOSPHATASE 88 U/L (38-126); ANION GAP 13 (5-19); ASPARTATE AMINO TRANSFERASE 23 U/L (14-36); BILIRUBIN,DIRECT 0.2 mg/dL (0.0-0.4); BILIRUBIN,TOTAL 0.4 mg/dL (0.2-1.3); BLOOD UREA NITROGEN 14 mg/dL (7-20); CALCIUM 10.2 mg/dL (8.4-10.2); CARBON DIOXIDE 26 mmol/L (22-30); CHLORIDE 103 mmol/L (98-107); CREATINE KINASE 87 U/L (30-135); GLUCOSE 98 mg/dL (75-110); POTASSIUM 4.3 mmol/L (3.6-5.0); SODIUM 141.6 mmol/L (137-145); TOTAL PROTEIN 7.5 g/dL (6.3-8.2)
[2018-05-11 15:16] LABS: TROPONIN I < 0.012 ng/mL
--- NOTE | 2018-05-11 15:34 | ER Document Report ---
ED Cardiac - General Chief Complaint: Chest Pain Stated Complaint: CHEST PAIN Time Seen by Provider: 05/11/18 14:13 Mode of Arrival: Ambulatory Information source: Patient TRAVEL OUTSIDE OF THE [place] 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, the pain radiates to her left chest, it is worsened when she takes a deep breath and feels as though she cannot catch her breath, symptoms have lasted approximately 2 hours at this point in time, however have improved since being in the emergency department, she does report having cold symptoms times 3 weeks which she is just getting over, has a history of bilateral tubal ligation, not currently on any control or hormone replacement of any type, no recent long distance road trips or periods of immobilization, she does report a strong family history of coronary artery disease with HI, her great grandfather having at age 32 from an HI, her father and aunt both having significant coronary artery disease that was first noted in their 30s - Related Data Allergies/Adverse Reactions: phenytoin sodium [From Dilantin] Allergy (Severe, Verified 05/11/18 14:14) Seizures phenytoin sodium extended [From Dilantin] Allergy (Severe, Verified 05/11/18 14: 14) Seizures amoxicillin [Amoxicillin] Allergy (Mild, Verified 05/11/18 14:14) Urticaria ciprofloxacin [Ciprofloxacin] Allergy (Mild, Verified 05/11/18 14:14) Urticaria Penicillins Allergy (Mild, Verified 05/11/18 14:14) Urticaria Past Medical History - General Information source: Patient - Social History Smoking Status: Current Every Day Smoker Chew tobacco use (# tins/day): No Frequency of alcohol use: Occasional Drug Abuse: None Family History: Reviewed & Not Pertinent, Arthritis, CAD, CVA, DM, Hyperlipidemia, Hypertension, Malignancy, Thyroid Disfunction Patient has suicidal ideation: No Patient has homicidal ideation: No - Past Medical History Cardiac Medical History: Reports: Hx Heart Murmur Neurological Medical History: Reports: Hx Migraine, Hx Seizures - last seizure 3 months ago - states is not on any anti-convulsant medication Endocrine Medical History: Reports: Hx Diabetes Mellitus Type 2, Hx Hyperthyroidism Renal/ Medical History: Reports: Hx Ectopic , Hx Kidney Stones, Hx Ovarian Cysts. Denies: Hx Peritoneal Dialysis, Hx Pelvic Inflammatory Disease Musculoskeletal Medical History: Reports Hx Musculoskeletal Deformity, Reports Hx Musculoskeletal Trauma Skin Medical History: Reports Hx MRSA Psychiatric Medical History: Reports: Hx Attention Deficit Hyperactivity Disorder Traumatic Medical History: Reports: Hx Fractures - clavicle ribs arm nose Infectious Medical History: Reports: Hx MRSA Past Surgical History: Reports: Hx Section - x2, Hx Gynecologic Surgery - tubal ligation, Hx Nose Surgery, Hx Tubal Ligation - Immunizations Hx Diphtheria, Pertussis, Tetanus Vaccination: Yes - december 11 2015 Review of Systems - Review of Systems Constitutional: No symptoms reported EENT: No symptoms reported Cardiovascular: See HPI Respiratory: See HPI Gastrointestinal: No symptoms reported Genitourinary: No symptoms reported Female Genitourinary: No symptoms reported Musculoskeletal: No symptoms reported Skin: No symptoms reported Hematologic/Lymphatic: No symptoms reported Neurological/Psychological: No symptoms reported -: Yes All other systems reviewed and negative Physical Exam - Vital signs Vitals: Temp Pulse Resp BP Pulse Ox 98.4 F 88 20 115/66 100 05/11/18 13:41 05/11/18 13:41 05/11/18 13:41 05/11/18 13:41 05/11/18 13:41 Interpretation: Normal - General General appearance: Appears well, Alert - HEENT Head: Normocephalic, Atraumatic Eyes: Normal Pupils: PERRL - Respiratory Respiratory status: No respiratory distress Chest status: Tender - Tender to palpate in the left anterior chest wall Breath sounds: Normal Chest palpation: Normal - Cardiovascular Rhythm: Regular Heart sounds: Normal auscultation Murmur: No - Abdominal Inspection: Normal Distension: No distension Bowel sounds: Normal Tenderness: Nontender Organomegaly: No organomegaly - Back Back: Normal, Nontender - Extremities General upper extremity: Normal inspection, Nontender, Normal color, Normal ROM , Normal temperature General lower extremity: Normal inspection, Nontender, Normal color, Normal ROM , Normal temperature, Normal weight bearing. No: Abelardo's sign - Neurological Neuro grossly intact: Yes Cognition: Normal Orientation: AAOx4 [place] Coma Scale Eye Opening: Spontaneous [place] Coma Scale Verbal: Oriented [place] Coma Scale Motor: Obeys Commands [place] Coma Scale Total: 15 Speech: Normal Motor strength normal: LUE, RUE, LLE, RLE Sensory: Normal - Psychological Associated symptoms: Normal affect, Normal mood - Skin Skin Temperature: Warm Skin Moisture: Dry Skin Color: Normal Course - Re-evaluation Re-evalutation: 05/11/18 19:55 Lab and imaging findings discussed with patient at bedside which are unremarkable including negative d-dimer and negative troponin x2, patient has no risk factors for heart disease except for strong family history, and reports feeling much better at time of reevaluation, therefore discharged with instructions for follow-up and advised to return if symptoms worsen, patient acknowledges understanding and agreement with this plan - Vital Signs Vital signs: Temp Pulse Resp BP Pulse Ox 98.4 F 82 16 118/69 100 05/11/18 18:36 05/11/18 18:36 05/11/18 18:36 05/11/18 18:36 05/11/18 18:36 - Laboratory Result Diagrams: 05/11/18 14:26 05/11/18 14:26 - Diagnostic Test Radiology reviewed: Image reviewed, Reports reviewed - EKG Interpretation by Me EKG shows normal: Sinus rhythm Rate: Normal Rhythm: NSR Discharge - Discharge Clinical Impression: Chest pain Qualifiers: Chest pain type: unspecified Qualified Code(s): R07.9 - Chest pain, unspecified Condition: Stable Disposition: HOME, SELF-CARE Instructions: Chest Pain of Unclear Cause ([facility]) Additional Instructions: Follow up with your primary care provider in one to 2 days. Return to the emergency room immediately if symptoms worsen or any additional concerns. Referrals: FARSHAD GARCIA FNP-C [NURSE PRACTITIONER] - Follow up as needed
--- NOTE | 2018-05-11 16:05 | RADIOLOGY REPORT (SQ) ---
EXAM DESCRIPTION: CHEST 2 VIEWS COMPLETED DATE/TIME: 05/11/2018 3:57 pm REASON FOR STUDY: cp COMPARISON: None. EXAM PARAMETERS: NUMBER OF VIEWS: two views TECHNIQUE: Digital Frontal and Lateral radiographic views of the chest acquired. RADIATION DOSE: NA LIMITATIONS: none FINDINGS: LUNGS AND PLEURA: No opacities, masses or pneumothorax. No pleural effusion. MEDIASTINUM AND HILAR STRUCTURES: No masses or contour abnormalities. HEART AND VASCULAR STRUCTURES: Heart normal size. No evidence for failure. BONES: No acute findings. HARDWARE: None in the chest. OTHER: No other significant finding. IMPRESSION: NO ACUTE RADIOGRAPHIC FINDING IN THE CHEST. TECHNICAL DOCUMENTATION: JOB ID: [id number] [employer]- All Rights Reserved Reading location - IP/workstation name: [email or web address]
[2018-05-11 18:49] VITALS: BP 118/69
== END 2018-05-11 18:36 | disposition home or self-care (01) ==
LOC: ER 13:09
DX: R07.9 Chest pain, unspecified (principal); F17.200 Nicotine dependence, unspecified, uncomplicated; E11.9 Type 2 diabetes mellitus without complications
CPT/HCPCS: 36415; 71046; 80053; 82550; 82553; 84484; 85025; 85379; 93005; 93010; 99285

== ENCOUNTER 2018-09-01 10:45 | Emergency (ER) | payer MEDICAID ==
[2018-09-01] MEDS ORDERED: NORMAL SALINE 1000 ML 1,000 ML IV ONE (11:06)
[2018-09-01] MEDS ORDERED: ONDANSETRON HCL INJ/PF 4 MG/2 ML SDV IV ONE (11:06)
[2018-09-01] MEDS ORDERED: KETOROLAC TROMETHAMINE INJ/PF 30 MG/1 ML SDV IV ONE (11:07)
--- NOTE | 2018-09-01 11:09 | ER Document Report ---
ED Medical Screen (RME) - General Chief Complaint: Abdominal Pain Stated Complaint: URINARY ISSUE/VOMITING/ABDOMINAL PAIN Time Seen by Provider: 09/01/18 11:01 Notes: 32-year-old female patient reports onset 9 days ago of right lower back pain. She states she got bad to 3 days ago, when at the same time she developed right lower quadrant abdominal pain and epigastric abdominal pain. She also reports painful urination, some diarrhea, some vomiting. She was seen in the office across the street, and had a negative urine and negative hCG test and sent to the emergency room. She does have a history of kidney stones. Brief exam shows her to be quite tender in her right lower quadrant and in her epigastrium. I have greeted and performed a rapid initial assessment of this patient. A comprehensive ED assessment and evaluation of the patient, analysis of test results and completion of the medical decision making process will be conducted by additional ED providers. TRAVEL OUTSIDE OF THE [place] IN LAST 30 DAYS: No - Related Data Allergies/Adverse Reactions: phenytoin sodium [From Dilantin] Allergy (Severe, Verified 09/01/18 10:50) Seizures phenytoin sodium extended [From Dilantin] Allergy (Severe, Verified 09/01/18 10:50) Seizures amoxicillin [Amoxicillin] Allergy (Mild, Verified 09/01/18 10:50) Urticaria ciprofloxacin [Ciprofloxacin] Allergy (Mild, Verified 09/01/18 10:50) Urticaria Penicillins Allergy (Mild, Verified 09/01/18 10:50) Urticaria Past Medical History - Social History Chew tobacco use (# tins/day): No Frequency of alcohol use: Occasional Drug Abuse: None - Past Medical History Cardiac Medical History: Reports: Hx Heart Murmur Neurological Medical History: Reports: Hx Migraine, Hx Seizures - last seizure 3 months ago - states is not on any anti-convulsant medication Endocrine Medical History: Reports: Hx Diabetes Mellitus Type 2, Hx Hyperthyroidism Renal/ Medical History: Reports: Hx Ectopic , Hx Kidney Stones, Hx Ovarian Cysts. Denies: Hx Peritoneal Dialysis, Hx Pelvic Inflammatory Disease Musculoskeltal Medical History: Reports Hx Musculoskeletal Deformity, Reports Hx Musculoskeletal Trauma Skin Medical History: Reports Hx MRSA Psychiatric Medical History: Reports: Hx Attention Deficit Hyperactivity Dis order Traumatic Medical History: Reports: Hx Fractures - clavicle ribs arm nose Infectious Medical History: Reports: Hx MRSA Past Surgical History: Reports: Hx Section - x2, Hx Gynecologic Surgery - tubal ligation, Hx Nose Surgery, Hx Tubal Ligation - Immunizations Hx Diphtheria, Pertussis, Tetanus Vaccination: Yes - december 11 2015 Physical Exam - Vital signs Vitals: Temp Pulse Resp BP Pulse Ox 98.1 F 88 16 140/79 H 99 09/01/18 10:52 09/01/18 10:52 09/01/18 10:52 09/01/18 10:52 09/01/18 10:52 Course - Vital Signs Vital signs: Temp Pulse Resp BP Pulse Ox 98.1 F 88 16 140/79 H 99 09/01/18 10:52 09/01/18 10:52 09/01/18 10:52 09/01/18 10:52 09/01/18 10:52
[2018-09-01 11:36] LABS: ABSOLUTE EOSINOPHILS # (AUTO) 0.1 10^3/uL (0.0-0.6); ABSOLUTE LYMPHOCYTES (AUTO) 1.7 10^3/uL (0.5-4.7); ABSOLUTE MONOCYTES (AUTO) 0.3 10^3/uL (0.1-1.4); BASOPHILS % (AUTO) 0.9 % (0-2); EOSINOPHILS % (AUTO) 1.3 % (0-6); HEMATOCRIT 38.4 % (36.0-47.0); HEMOGLOBIN 13.2 g/dL (12.0-15.5); LYMPHOCYTES % (AUTO) 41.7 % (13-45); MEAN CORPUSCULAR HEMOGLOBIN 31.7 pg (27.0-33.4); MEAN CORPUSCULAR HGB CONC 34.3 g/dL (32.0-36.0); MEAN CORPUSCULAR VOLUME 93 fl (80-97); MONOCYTES % (AUTO) 7.2 % (3-13); PLATELET COUNT 329 10^3/uL (150-450); RED BLOOD COUNT 4.14 10^6/uL (3.72-5.28); RED CELL DISTRIBUTION WIDTH 13.7 % (11.5-14.0); SEGMENTED NEUTROPHILS % (AUTO) 48.9 % (42-78); TOTAL CELLS COUNTED % (AUTO) 100 %; WHITE BLOOD COUNT 4.2 10^3/uL (4.0-10.5)
--- NOTE | 2018-09-01 11:47 | ER Document Report ---
ED General - General Chief Complaint: Abdominal Pain Stated Complaint: URINARY ISSUE/VOMITING/ABDOMINAL PAIN Time Seen by Provider: 09/01/18 11:01 Primary Care Provider: BRENNON CALHOUN MD [Primary Care Provider] - Follow up as needed TRAVEL OUTSIDE OF THE [place] IN LAST 30 DAYS: No - HPI Notes: Patient is a 32-year-old female with a history of seizure disorder and kidney stones who presents to the emergency department complaining of burning with urination (feels like glass), right lower quadrant abdominal pain, epigastric pain, nausea/vomiting/diarrhea times 5 days. Patient states that her last episode of emesis and watery/oily diarrhea was about [address]es that her pains do not radiate otherwise. She is still able to eat and drink, but does have a decreased p.o. intake. Patient states that she just started her menstrual cycle yesterday, but has no other concern of STD or STI and has not had any odor or discharge. Denies any headache, fever, neck pain, URI, sore throat, chest pain, palpitations, syncope, cough, shortness of breath, wheeze, dyspnea, urinary retention, loss of control of bowel or bladder, numbness/tingling, saddle anesthesia, muscle paralysis/weakness, or rash. - Related Data Allergies/Adverse Reactions: phenytoin sodium [From Dilantin] Allergy (Severe, Verified 09/01/18 10:50) Seizures phenytoin sodium extended [From Dilantin] Allergy (Severe, Verified 09/01/18 10:50) Seizures amoxicillin [Amoxicillin] Allergy (Mild, Verified 09/01/18 10:50) Urticaria ciprofloxacin [Ciprofloxacin] Allergy (Mild, Verified 09/01/18 10:50) Urticaria Penicillins Allergy (Mild, Verified 09/01/18 10:50) Urticaria Past Medical History - Social History Smoking Status: Current Every Day Smoker Chew tobacco use (# tins/day): No Frequency of alcohol use: Occasional Drug Abuse: None Family History: Reviewed & Not Pertinent, Arthritis, CAD, CVA, DM, Hyperlipidemia, Hypertension, Malignancy, Thyroid Disfunction Patient has suicidal ideation: No Patient has homicidal ideation: No - Past Medical History Cardiac Medical History: Reports: Hx Heart Murmur Neurological Medical History: Reports: Hx Migraine, Hx Seizures - last seizure 3 months ago - states is not on any anti-convulsant medication Endocrine Medical History: Reports: Hx Diabetes Mellitus Type 2, Hx Hyperthyroidism Renal/ Medical History: Reports: Hx Ectopic , Hx Kidney Stones, Hx Ov marty Cysts. Denies: Hx Peritoneal Dialysis, Hx Pelvic Inflammatory Disease Musculoskeletal Medical History: Reports Hx Musculoskeletal Deformity, Reports Hx Musculoskeletal Trauma Skin Medical History: Reports Hx MRSA Psychiatric Medical History: Reports: Hx Attention Deficit Hyperactivity Disorder Traumatic Medical History: Reports: Hx Fractures - clavicle ribs arm nose Infectious Medical History: Reports: Hx MRSA Past Surgical History: Reports: Hx Section - x2, Hx Gynecologic Surgery - tubal ligation, Hx Nose Surgery, Hx Tubal Ligation - Immunizations Hx Diphtheria, Pertussis, Tetanus Vaccination: Yes - december 11 2015 Review of Systems - Review of Systems -: Yes All other systems reviewed and negative Physical Exam - Vital signs Vitals: Temp Pulse Resp BP Pulse Ox 98.1 F 88 16 140/79 H 99 09/01/18 10:52 09/01/18 10:52 09/01/18 10:52 09/01/18 10:52 09/01/18 10:52 - Notes Notes: PHYSICAL EXAMINATION: GENERAL: Well-appearing, well-nourished and in no acute distress. A&Ox4. Answers questions appropriately. HEAD: Atraumatic, normocephalic. EYES: Pupils equal round and reactive to light, extraocular movements intact, sclera anicteric, conjunctiva are normal. ENT: Nares patent and without discharge. oropharynx clear without exudates. No tonsilar hypertrophy or erythema. Moist mucous membranes. NECK: Normal range of motion, supple without lymphadenopathy LUNGS: Breath sounds clear to auscultation bilaterally and equal. No wheezes rales or rhonchi. HEART: Regular rate and rhythm without murmurs, rubs, gallops. ABDOMEN: Soft, nondistended abdomen. No guarding, no rebound. No masses appreciated. Normal bowel sounds present. No CVA tenderness bilaterally. Garcia neg. + tenderness to the epigastrum and to the RLQ near McBurney point. : pt declined. Musculoskeletal: FROM to passive/active. Strength 5+/5. Extremities: No cyanosis, clubbing, or edema b/l. Peripheral pulses 2+. Capillary refill less than 3 seconds. NEUROLOGICAL: Cranial nerves grossly intact. Normal speech, normal gait. PSYCH: Normal mood, normal affect. SKIN: Warm, Dry, normal turgor, no rashes or lesions noted. Course - Re-evaluation Re-evalutation: 09/01/18 13:00 Case has been reviewed with Dr. Spence who is in agreement with plan thus far. We initially obtained a CT plain to evaluate for possible stone which was grossly unremarkable, w. no appendix visualized. Pt does not have any white count/fever and has n/v/d. I overall suspect probable viral illness vs her having an appendicitis, ?mild UTI. I reviewed this with the patient and options including 24 hour return for re-evaluation vs obtaining a contrasted scan today. Pt would like to have the scans performed to further evaluate. Pt is again verbally declining any STD testing or pelvic to be performed. Risk/benefit understood. 09/01/18 16:01 (also reviewed CT/labs/case with Dr. Davis who is in agreement with dispo/plan and low suspicion for appendicitis) Patient is an afebrile, well-hydrated, 32-year-old female who presents emergency department with right lower abdominal pain, unspecified. Vitals are acceptable without significant tachycardia, tachypnea, or hypoxia. PE is otherwise unremarkable. Patient has not had any deterioration or worsening in her symptoms. She is nontoxic-appearing and is tolerating p.o. without difficulty. CBC, CMP, hCG unremarkable. Urine is not convincing for UTI, but patient does have symptoms and we will cover with Keflex while urine culture pending. CT scan unremarkable for acute pathology at this time. Strict return precautions reviewed with the patient. Low suspicion/risk for acute appendicitis, bowel obstruction, acute cholecystitis, acute cholangitis, perforated diverticulitis, incarcerated hernia, pancreatitis, perforated ulcer, peritonitis, sepsis, pelvic inflammatory disease, ectopic , tubo-ovarian abscess, ovarian torsion, or other systemic emergent condition at this time. Patient is aware that her condition can change from initial presentation and she needs to monitor symptoms closely and seek medical attention if any acute changes. Conservative measures otherwise for symptoms. Recheck with your PCM in 2-3 days. Return to the ED with any worsening/concerning symptoms otherwise as reviewed in discharge. Patient is in agreement. - Vital Signs Vital signs: Temp Pulse Resp BP Pulse Ox 98.1 F 88 16 140/79 H 99 09/01/18 10:52 09/01/18 10:52 09/01/18 10:52 09/01/18 10:52 09/01/18 10:52 - Laboratory Result Diagrams: 09/01/18 11:20 09/01/18 11:20 Laboratory results interpreted by me: 09/01/18 11:14 Urine Blood LARGE H Ur Leukocyte Esterase SMALL H Discharge - Discharge Clinical Impression: Lower abdominal pain, Dysuria Condition: Stable Disposition: HOME, SELF-CARE Instructions: Abdominal Pain ([facility]), Observation for Appendicitis ([facility]) Additional Instructions: Maintain adequate fluid and food intake tylenol/motrin if needed Monitor for any worsening symptoms Make sure you are staying hydrated enough to urinate and have normal BM's Recheck with your PCM in 2-3 days Return to the ED with any worsening symptoms and/or development of fever, headache, chest pain, palpitations, syncope, shortness of breath, trouble breathing, abdominal pain, n/v/d, blood in stool/urine, weakness, or other worsening symptoms that are concerning to you. Prescriptions: Cephalexin Monohydrate [Keflex 500 mg Capsule] 500 mg PO TID #21 capsule Forms: Elevated Blood Pressure Referrals: BRENNON CALHOUN MD [Primary Care Provider] - Follow up as needed
[2018-09-01 11:50] LABS: ALANINE AMINOTRANSFERASE 18 U/L (9-52); ALBUMIN 4.4 g/dL (3.5-5.0); ALKALINE PHOSPHATASE 72 U/L (38-126); ANION GAP 6 (5-19); ASPARTATE AMINO TRANSFERASE 19 U/L (14-36); BILIRUBIN,DIRECT 0.1 mg/dL (0.0-0.4); BILIRUBIN,TOTAL 0.5 mg/dL (0.2-1.3); BLOOD UREA NITROGEN 9 mg/dL (7-20); CARBON DIOXIDE 26 mmol/L (22-30); CHLORIDE 107 mmol/L (98-107); GLUCOSE 100 mg/dL (75-110); LIPASE 48.7 U/L (23-300); POTASSIUM 4.3 mmol/L (3.6-5.0); SODIUM 139.1 mmol/L (137-145); TOTAL PROTEIN 7.1 g/dL (6.3-8.2)
[2018-09-01 12:04] LABS: APPEARANCE,URINE SLIGHTLY-CLOUDY; BILIRUBIN,URINE NEGATIVE (NEGATIVE); COLOR,URINE YELLOW; GLUCOSE, URINE NEGATIVE (NEGATIVE); KETONES,URINE NEGATIVE (NEGATIVE); LEUKOCYTE ESTERASE,URINE SMALL (NEGATIVE); NITRITE,URINE NEGATIVE (NEGATIVE); PROTEIN,URINE NEGATIVE (NEGATIVE); UROBILINOGEN,URINE NEGATIVE mg/dL (<2.0)
--- NOTE | 2018-09-01 12:40 | RADIOLOGY REPORT (SQ) ---
EXAM DESCRIPTION: CT ABD/PELVIS NO ORAL OR IV COMPLETED DATE/TIME: 09/01/2018 12:33 pm REASON FOR STUDY: Rt flank pain, Rt abd pain COMPARISON: 07/24/2017 TECHNIQUE: CT scan of the abdomen and pelvis performed without intravenous or oral contrast. Images reviewed with lung, soft tissue, and bone windows. Reconstructed coronal and sagittal MPR images revi ewed. All images stored on PACS. All CT scanners at this facility use dose modulation, iterative reconstruction, and/or weight based d osing when appropriate to reduce radiation dose to as low as reasonably achievable (ALARA). [facility]: Dose Right [facility]: CareDose [facility]: Dose Right [facility]: Teradose 4D [facility]: [employer] RADIATION DOSE: mGy. LIMITATIONS: None. FINDINGS: LOWER CHEST: No significant findings. No nodules or infiltrates. NON-CONTRASTED LIVER, SPLEEN, ADRENALS: Evaluation limited by lack of IV contrast. No identified sign ificant masses. PANCREAS: No masses. No peripancreatic inflammatory changes. GALLBLADDER: No identified stones by CT criteria. No inflammatory changes to suggest cholecystitis. RIGHT KIDNEY AND URETER: No suspicious masses. Assessment limited by lack of IV contrast. There is a nonobstructing stone in the lower pole the right kidney. No hydronephrosis or hydroureter. LEFT KIDNEY AND URETER: No suspicious masses. Assessment limited by lack of IV contrast. No signifi cant calcifications. No hydronephrosis or hydroureter. AORTA AND RETROPERITONEUM: No aneurysm. No retroperitoneal masses or adenopathy. BOWEL AND PERITONEAL CAVITY: No obvious masses or inflammatory changes. No free fluid. APPENDIX: Not visualized. PELVIS, BLADDER, AND ABDOMINAL WALL:No abnormal masses. No free fluid. Bladder normal. BONES: No significant findings. OTHER: No other significant finding. IMPRESSION: Small nonobstructing stone in the lower pole the right kidney. No hydronephrosis. No a cute findings in the abdomen or pelvis. COMMENT: Quality ID # [id number]: Final reports with documentation of one or more dose reduction techniques (e.g., Automated exposure control, adjustment of the mA and/or kV according to patient size, use of iterative reconstruction technique) TECHNICAL DOCUMENTATION: JOB ID: [id number] [employer]- All Rights Reserved Reading location - IP/workstation name: [email or web address]
--- NOTE | 2018-09-01 15:50 | RADIOLOGY REPORT (SQ) ---
EXAM DESCRIPTION: CT ABD/PELVIS WITH IV ORAL COMPLETED DATE/TIME: 09/01/2018 3:42 pm REASON FOR STUDY: RLQ pain COMPARISON: Earlier the same day. TECHNIQUE: CT scan of the abdomen and pelvis performed using helical scanning technique with dynamic intravenous contrast injection. No oral contrast. Images reviewed with lung, soft tissue, and bone windows. Reconstructed coronal and sagittal MPR images reviewed. Delayed images for evaluation of the urinary system also acquired. All images stored on PACS. All CT scanners at this facility use dose modulation, iterative reconstruction, and/or weight based d osing when appropriate to reduce radiation dose to as low as reasonably achievable (ALARA). [facility]: Dose Right [facility]: CareDose [facility]: Dose Right [facility]: Teradose 4D [facility]: [employer] CONTRAST TYPE AND DOSE: contrast/concentration: Isovue 350.00 mg/ml; Total Contrast Delivered: 64.0 ml; Total Saline Delivered: 65.0 ml RENAL FUNCTION: None required. The patient is less than 50 years old. RADIATION DOSE: CT Rad equipment meets quality standard of care and radiation dose reduction techniq ues were employed. CTDIvol: NaN - NaN mGy. DLP: 0 mGy-cm.. LIMITATIONS: None. FINDINGS: LOWER CHEST: No significant findings. No nodules or infiltrates. LIVER: Normal size. No masses. No dilated ducts. SPLEEN: Normal size. No focal lesions. PANCREAS: No masses. No significant calcifications. No adjacent inflammation or peripancreatic fluid collections. Pancreatic duct not dilated. GALLBLADDER: No identified stones by CT criteria. No inflammatory changes to suggest cholecystitis. ADRENAL GLANDS: No significant masses or asymmetry. RIGHT KIDNEY AND URETER: No solid masses. Small nonobstructing stone in the right kidney is less ap parent on the contrasted exam. No hydronephrosis or hydroureter. LEFT KIDNEY AND URETER: No solid masses. No significant calcifications. No hydronephrosis or hydr oureter. AORTA AND VESSELS: No aneurysm. No dissection. Renal arteries, SMA, celiac without stenosis. RETROPERITONEUM: No retroperitoneal adenopathy, hemorrhage or masses. BOWEL AND PERITONEAL CAVITY: No masses or inflammatory changes. No free fluid or peritoneal masses. APPENDIX: Not visualized. PELVIS: There is a small left adnexal lesion most likely ovarian cyst. There is a trace amount of fr ee fluid the pelvis most likely physiologic. ABDOMINAL WALL: No masses. No hernias. BONES: No significant or acute findings. OTHER: No other significant finding. IMPRESSION: Small left adnexal lesion most likely left ovarian cyst. No other significant findings. The appendix is not identified. There are no inflammatory changes in the right lower quadrant. TECHNICAL DOCUMENTATION: JOB ID: [id number] Quality ID # [id number]: Final reports with documentation of one or more dose reduction techniques (e.g., Au tomated exposure control, adjustment of the mA and/or kV according to patient size, use of iterative reconstruction technique) 2010 [employer]- All Rights Reserved Reading location - IP/workstation name: [email or web address]
[2018-09-01 16:31] VITALS: BP 138/78
== END 2018-09-01 16:31 | disposition home or self-care (01) ==
LOC: ER 10:45
DX: R30.0 Dysuria (principal); R10.31 Right lower quadrant pain; R10.13 Epigastric pain; R11.2 Nausea with vomiting, unspecified; R19.7 Diarrhea, unspecified; F17.200 Nicotine dependence, unspecified, uncomplicated; E11.9 Type 2 diabetes mellitus without complications; Z88.0 Allergy status to penicillin; Z88.3 Allergy status to other anti-infective agents; Z86.14 Personal history of Methicillin resistant Staphylococcus aureus infection; Z98.51 Tubal ligation status
CPT/HCPCS: 99284; 96361; 96374; 96375; 36415; 87086; 83690; 84703; 85025; 87088; 80053; 81001; 87186; 74176; 74177; J1885; J2405; J7030

== ENCOUNTER 2018-09-20 09:08 | Day surgery (SDC) | payer MEDICAID ==
[~2018-09-20 09:08] MED LIST: PROPOFOL INJ 200 MG/20 ML VIAL IV ONE
[2018-09-20] MEDS ORDERED: ONDANSETRON HCL INJ/PF 4 MG/2 ML SDV IV PRN (12:02)
--- NOTE | 2018-09-20 12:56 | Operative Report ---
Operative Report DATE OF SURGERY: 09/20/18 Operative Report: The risks, benefits and alternatives of the procedure including the risk of bleeding, perforation requiring surgery have been explained to the patient in detail and informed consent is obtained. Patient is placed in a left, lateral decubital position. Timeout was called. Propofol medication is administered. Rectal examination is done which did not reveal any masses, tears or fissures. An Olympus videoscope was introduced into the patient's rectum. The scope was then carefully advanced all the way to the cecum. Cecum was identified by the usual anatomical landmarks of the ileocecal valve as well as the appendiceal office. Photodocumentation is obtained. The scope was then sequentially pulled back via the rest segments of the colon including the ascending colon, hepatic flexure, transverse colon, splenic flexure, descending colon and finally into the rectosigmoid portions of the colon. Retroflexion maneuver was performed. The risks benefits and alternatives of the procedure explained to the patient in detail and informed consent is obtained.A GIF Olympus video scope was inserted into the patient's mouth and hypopharynx, the esophagus is identified intubated and insufflated ,the scope was then advanced through the esophagus stomach and duodenum, retroflexion maneuver is done ,the esophagus stomach and first and second portions of the duodenum examined. PREOPERATIVE DIAGNOSIS: Nausea vomiting, change in bowel habits. Intermittent blood in stools POSTOPERATIVE DIAGNOSIS: Internal hemorrhoids. Right colon inflammation status post biopsy with lymphocytic colitis. Gastritis status post biopsy to rule out Helicobacter pylori. Esophageal rings and furrows suggestive of eosinophilic esophagitis status post biopsy. OPERATION: Colonoscopy with biopsy. EGD with biopsy SURGEON: JULEE DUNBAR ANESTHESIA: LMAC TISSUE REMOVED OR ALTERED: As noted above. COMPLICATIONS: None. ESTIMATED BLOOD LOSS: None. INTRAOPERATIVE FINDINGS: As noted above. PROCEDURE: Patient tolerated the procedure well. No immediate postprocedure complications are noted. Patient discharged in good condition. Discharge date 09/20/2018. Discharge diet: Regular. Discharge activity: Regular. 2-3-week follow-up to discuss findings. Patient is instructed to call the office or proceed to the emergency room should there be any further problems or questions. Wait on the pathology.
[2018-09-20] MEDS ORDERED: PROPOFOL INJ 200 MG/20 ML VIAL IV ONE (13:07)
[2018-09-20 13:38] VITALS: BP 106/71
== END 2018-09-20 13:32 | disposition home or self-care (01) ==
LOC: OROUT 09:08
PROVIDERS: ATTEND Internal Medicine Gastroenterology
DX: K29.50 Unspecified chronic gastritis without bleeding (principal); K20.9 Esophagitis, unspecified; K52.9 Noninfective gastroenteritis and colitis, unspecified; K64.8 Other hemorrhoids; F17.210 Nicotine dependence, cigarettes, uncomplicated; Z88.8 Allergy status to other drugs, medicaments and biological substances; Z88.0 Allergy status to penicillin
CPT/HCPCS: 43239; 45380; 81025; 88305 ×2; J2704; 813

== ENCOUNTER 2018-10-25 11:47 | Emergency (ER) | payer MEDICAID ==
--- NOTE | 2018-10-25 12:21 | ER Document Report ---
ED Medical Screen (RME) - General Chief Complaint: Psych Problem Stated Complaint: SI Time Seen by Provider: 10/25/18 12:17 Primary Care Provider: REGINE GRIFFIN DO [Primary Care Provider] - Follow up as needed Notes: Patient presents to the emergency department with suicidal ideation for the past couple weeks. Reports all she wanted to do today when she woke was slit her wrist. Reports history of attempted suicide. Reports she went to her primary care provider Dr. Olson at [facility] and they told her bring her here to be admitted. Patient is tearful mother is with her. I have greeted and performed a rapid initial assessment of this patient. A comprehensive ED assessment and evaluation of the patient, analysis of test results and completion of the medical decision making process will be conducted by additional ED providers. Dictation of this chart was performed using voice recognition software; therefore, there may be some unintended grammatical errors. TRAVEL OUTSIDE OF THE [place] IN LAST 30 DAYS: No - Related Data Allergies/Adverse Reactions: phenytoin sodium [From Dilantin] Allergy (Severe, Verified 09/20/18 09:31) Seizures phenytoin sodium extended [From Dilantin] Allergy (Severe, Verified 09/20/18 09:31) Seizures amoxicillin [Amoxicillin] Allergy (Mild, Verified 09/20/18 09:31) Urticaria ciprofloxacin [Ciprofloxacin] Allergy (Mild, Verified 09/20/18 09:31) Urticaria Penicillins Allergy (Mild, Verified 09/20/18 09:31) Urticaria Past Medical History - Past Medical History Cardiac Medical History: Reports: Hx Heart Murmur Denies: Hx Coronary Artery Disease, Hx Heart Attack, Hx Hypertension Pulmonary Medical History: Denies: Hx Asthma, Hx Bronchitis, Hx COPD, Hx Pneumonia Neurological Medical History: Reports: Hx Migraine, Hx Seizures - last seizure 3 months ago - states is not on any anti-convulsant medication. Denies: Hx Cerebrovascular Accident Endocrine Medical History: Reports: Hx Diabetes Mellitus Type 2, Hx Hyperthyroidism Renal/ Medical History: Reports: Hx Ectopic , Hx Kidney Stones, Hx Ovarian Cysts. Denies: Hx Peritoneal Dialysis, Hx Pelvic Inflammatory Disease Musculoskeltal Medical History: Denies Hx Arthritis, Reports Hx Musculoskeletal Deformity, Reports Hx Musculoskeletal Trauma Skin Medical History: Reports Hx MRSA Psychiatric Medical History: Reports: Hx Attention Deficit Hyperactivity Disorder Traumatic Medical History: Reports: Hx Fractures - clavicle ribs arm nose Infectious Medical History: Reports: Hx MRSA Past Surgical History: Reports: Hx Section - x2, Hx Gynecologic Surgery - tubal ligation, Hx Nose Surgery, Hx Tubal Ligation - Immunizations Hx Diphtheria, Pertussis, Tetanus Vaccination: Yes - december 11 2015 Doctor's Discharge - Discharge Referrals: REGINE GRIFFIN DO [Primary Care Provider] - Follow up as needed
[2018-10-25 12:43] LABS: ABSOLUTE EOSINOPHILS # (AUTO) 0.1 10^3/uL (0.0-0.6); ABSOLUTE LYMPHOCYTES (AUTO) 1.7 10^3/uL (0.5-4.7); ABSOLUTE MONOCYTES (AUTO) 0.5 10^3/uL (0.1-1.4); ABSOLUTE NEUT (AUTO) 6.9 10^3/uL (1.7-8.2); BASOPHILS % (AUTO) 0.4 % (0-2); EOSINOPHILS % (AUTO) 0.9 % (0-6); HEMATOCRIT 42.8 % (36.0-47.0); HEMOGLOBIN 14.5 g/dL (12.0-15.5); LYMPHOCYTES % (AUTO) 18.6 % (13-45); MEAN CORPUSCULAR HEMOGLOBIN 31.2 pg (27.0-33.4); MEAN CORPUSCULAR HGB CONC 33.9 g/dL (32.0-36.0); MEAN CORPUSCULAR VOLUME 92 fl (80-97); MONOCYTES % (AUTO) 5.4 % (3-13); PLATELET COUNT 352 10^3/uL (150-450); RED BLOOD COUNT 4.66 10^6/uL (3.72-5.28); RED CELL DISTRIBUTION WIDTH 13.4 % (11.5-14.0); SEGMENTED NEUTROPHILS % (AUTO) 74.7 % (42-78); TOTAL CELLS COUNTED % (AUTO) 100 %; WHITE BLOOD COUNT 9.2 10^3/uL (4.0-10.5)
[2018-10-25 13:04] LABS: APPEARANCE,URINE CLOUDY; BILIRUBIN,URINE NEGATIVE (NEGATIVE); COLOR,URINE AMBER; GLUCOSE, URINE NEGATIVE (NEGATIVE); KETONES,URINE TRACE mg/dL (NEGATIVE); LEUKOCYTE ESTERASE,URINE SMALL (NEGATIVE); NITRITE,URINE NEGATIVE (NEGATIVE); PROTEIN,URINE 30 mg/dL (NEGATIVE); URINE AMPHETAMINES SCREEN NEGATIVE; URINE BARBITURATES SCREEN NEGATIVE; URINE BENZODIAZEPINES SCREEN NEGATIVE; URINE COCAINE SCREEN NEGATIVE; URINE MARIJUANA (THC) SCREEN NEGATIVE; URINE METHADONE SCREEN NEGATIVE; URINE PHENCYCLIDINE SCREEN NEGATIVE; URINE SPECIFIC GRAVITY 1.024
[2018-10-25 13:05] LABS: ALANINE AMINOTRANSFERASE 23 U/L (9-52); ALKALINE PHOSPHATASE 93 U/L (38-126); ANION GAP 13 (5-19); ASPARTATE AMINO TRANSFERASE 17 U/L (14-36); BILIRUBIN,DIRECT 0.3 mg/dL (0.0-0.4); BILIRUBIN,TOTAL 1.1 mg/dL (0.2-1.3); BLOOD UREA NITROGEN 9 mg/dL (7-20); CALCIUM 10.9 mg/dL (8.4-10.2); CARBON DIOXIDE 25 mmol/L (22-30); CHLORIDE 103 mmol/L (98-107); GLUCOSE 111 mg/dL (75-110); POTASSIUM 4.2 mmol/L (3.6-5.0); SODIUM 140.9 mmol/L (137-145); TOTAL PROTEIN 7.9 g/dL (6.3-8.2)
[2018-10-25 13:08] LABS: ACETAMINOPHEN < 10 ug/mL (10-30); ALCOHOL < 10 mg/dL (NONE DETECTED); SALICYLATE < 1.0 mg/dL (2.0-20.0)
--- NOTE | 2018-10-25 14:39 | EKG REPORT ---
SEVERITY:- NORMAL ECG - SINUS RHYTHM : Confirmed by: Cedric Bryant MD 25-Oct-2018 14:38:29
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
[2018-10-25] MEDS: OLANZAPINE 2.5 MG TABLET PO SCH (17:08)
[2018-10-25] MEDS: DIVALPROEX SODIUM 250 MG TAB.SR.24H PO SCH (17:09)
--- NOTE | 2018-10-26 09:21 | ER Document Report ---
Doctor's Note Notes: 10/26/18 09:20 Reevaluated the patient on rounding this morning. The patient denies any suicidal or homicidal thoughts denies visual auditory hallucinations this morning. States she still feels depressed but has some slight improvement. She is asking to go home and see her 9-year-old. Will reevaluate psychiatries plan.
[2018-10-26] MEDS: DIVALPROEX SODIUM 250 MG TAB.SR.24H PO SCH (10:49)
[2018-10-26] MEDS: OLANZAPINE 2.5 MG TABLET PO SCH (10:49)
[2018-10-26 16:47] VITALS: BP 113/61
== END 2018-10-26 16:17 | disposition home or self-care (01) ==
LOC: ER 11:47
DX: F32.9 Major depressive disorder, single episode, unspecified (principal); F17.200 Nicotine dependence, unspecified, uncomplicated
CPT/HCPCS: 93005; 99285; 36415; 80307 ×4; 84703; 85025; 80053; 81001; 93010; J3490 ×4

== ENCOUNTER 2020-05-15 10:20 | Emergency (ER) | payer MEDICAID, OTHER ==
[2020-05-15] MEDS ORDERED: KETOROLAC TROMETHAMINE INJ/PF 30 MG/1 ML SDV IV ONE (10:55)
--- NOTE | 2020-05-15 11:00 | ER Document Report ---
ED GI/ - General Chief Complaint: Flank Pain Stated Complaint: RIGHT FLANK PAIN,PAINFUL URINATION Time Seen by Provider: 05/15/20 10:43 Primary Care Provider: ANDREZ NADREWS NP [Primary Care Provider] - Follow up as needed Mode of Arrival: Ambulatory Information source: Patient Notes: 34-year-old white female presents complaining of 3-day history of right flank pain gradually worsening. Also has a bit of left-sided pain. History of previous kidney stone on the right. Has a history of UTIs pyelonephritis in the distant past. Denies any nausea or vomiting. No fever or chills. No real abdominal pain. 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 Patient states she has a daughter with an autoimmune disorder at home and wishes to be tested. TRAVEL OUTSIDE OF THE [place] IN LAST 30 DAYS: No - Related Data Allergies/Adverse Reactions: phenytoin sodium [From Dilantin] Allergy (Severe, Verified 05/15/20 10:42) Seizures phenytoin sodium extended [From Dilantin] Allergy (Severe, Verified 05/15/20 10:42) Seizures amoxicillin [Amoxicillin] Allergy (Mild, Verified 05/15/20 10:42) Urticaria ciprofloxacin [Ciprofloxacin] Allergy (Mild, Verified 05/15/20 10:42) Urticaria Penicillins Allergy (Mild, Verified 05/15/20 10:42) Urticaria Past Medical History - General Information source: Patient - Social History Smoking Status: Current Every Day Smoker Chew tobacco use (# tins/day): No Frequency of alcohol use: None Drug Abuse: None Family History: Reviewed & Not Pertinent, Arthritis, CAD, CVA, DM, Hyperlipidemia, Hypertension, Malignancy, Thyroid Disfunction Patient has homicidal ideation: No - Medical History Notes: Medical history reviewed summary and incorporated by reference. - Past Medical History Cardiac Medical History: Reports: Hx Heart Murmur Denies: Hx Coronary Artery Disease, Hx Heart Attack, Hx Hypertension Pulmonary Medical History: Denies: Hx Asthma, Hx Bronchitis, Hx COPD, Hx Pneumonia Neurological Medical History: Reports: Hx Migraine, Hx Seizures - last seizure 3 months ago - states is not on any anti-convulsant medication. Denies: Hx Cerebrovascular Accident Endocrine Medical History: Reports: Hx Diabetes Mellitus Type 2, Hx Hyperthyroidism Renal/ Medical History: Reports: Hx Ectopic , Hx Kidney Stones, Hx Ovarian Cysts. Denies: Hx Peritoneal Dialysis, Hx Pelvic Inflammatory Disease Musculoskeletal Medical History: Denies Hx Arthritis, Reports Hx Musculoskeletal Deformity, Reports Hx Musculoskeletal Trauma Skin Medical History: Reports Hx MRSA Psychiatric Medical History: Reports: Hx Attention Deficit Hyperactivity Disorder, Hx Depression Traumatic Medical History: Reports: Hx Fractures - clavicle ribs arm nose Infectious Medical History: Reports: Hx MRSA Past Surgical History: Reports: Hx Section - x2, Hx Gynecologic Surgery - tubal ligation, Hx Nose Surgery, Hx Tubal Ligation - Immunizations Hx Diphtheria, Pertussis, Tetanus Vaccination: Yes - december 11 2015 Review of Systems - Review of Systems Notes: Complete review of systems is noncontributory except as noted in the history of present illness. Physical Exam - Vital signs Vitals: Temp 98.7 F 05/15/20 10:21 - Notes Notes: General: Well-developed well-nourished female no acute distress. Vital signs and nursing chief complaint are reviewed. HEENT: Grossly normal inspection. Neck: Supple no nodes. Lungs: Clear to auscultation all cabrera. Heart: Regular rate and rhythm no murmur rub or gallop. Back: Positive right CVA tenderness to percussion. Abdomen: Mild right upper and right lower quadrant direct tenderness. No guarding no masses no rebound no organomegaly. Extremities: Without clubbing cyanosis or edema. Skin: Warm moist good turgor no rashes. Neuro: Alert and oriented x3. No focal neuro deficits noted. Course - Re-evaluation Re-evalutation: 05/15/20 13:51 Patient's pain was well controlled with a single dose of Toradol. She rested comfortably throughout her stay with no other symptoms. Because her urinalysis came back with both hematuria and pyuria I elected to do a stone survey to ascertain whether or not she had obstructive uropathy. Stone survey showed her previously documented calyceal stone on the right. No other abnormalities were noted. I discussed the results with the patient and encouraged her to drink as much water as possible. My plan is to start her on cephalexin 500 mg 3 times daily x7 days. She should follow up with her primary care provider or here if she is not improving or if any other concerning symptoms develop. - Vital Signs Vital signs: Temp Pulse Resp BP Pulse Ox 98.7 F 105 H 20 137/67 H 100 05/15/20 10:25 05/15/20 10:25 05/15/20 10:25 05/15/20 10:25 05/15/20 10:25 - Laboratory Result Diagrams: 05/15/20 11:10 05/15/20 11:10 Laboratory results interpreted by me: 05/15/20 05/15/20 11:10 11:10 Sodium 136.6 L Calcium 10.3 H Urine Blood MODERATE H Urine Nitrite POSITIVE H Ur Leukocyte Esterase SMALL H - Diagnostic Test Radiology reviewed: Image reviewed, Reports reviewed Radiology results interpreted by me: 05/15/20 13:52 Abdomen/Pelvis CT 05/15/20 12:00 IMPRESSION: There is a nonobstructing lower calyceal calculus on the right. There is no ureteral stone or obstruction. No acute findings in the abdomen or pelvis. Discharge - Discharge Clinical Impression: UTI (urinary tract infection) Qualifiers: Urinary tract infection type: site unspecified Hematuria presence: with hematuria Qualified Code(s): N39.0 - Urinary tract infection, site not specified; R31.9 - Hematuria, unspecified Condition: Good Disposition: HOME, SELF-CARE Instructions: Cephalexin ([facility]), Urinary Tract Infection ([facility]) Additional Instructions: Drink plenty of water. Make sure you drink at least 8 glasses a day and empty your bladder completely when you urinate. A prescription for cephalexin, an antibiotic, has been sent to [facility] pharmacy per your request. Please pick that up and take it until it is all gone according to label directions. You have been given a note to be off work today and tomorrow per your request. Follow-up with your primary care provider or return here if you are not improving or if any other worsening symptoms develop. Prescriptions: Cephalexin Monohydrate [Keflex 500 mg Capsule] 500 mg PO TID 5 Days #20 capsule Referrals: ANDREZ ANDREWS NP [Primary Care Provider] - Follow up as needed
[2020-05-15 11:32] LABS: ABSOLUTE EOSINOPHILS # (AUTO) 0.1 10^3/uL (0.0-0.6); ABSOLUTE LYMPHOCYTES (AUTO) 2.1 10^3/uL (0.5-4.7); ABSOLUTE MONOCYTES (AUTO) 0.5 10^3/uL (0.1-1.4); ABSOLUTE NEUT (AUTO) 4.5 10^3/uL (1.7-8.2); BASOPHILS % (AUTO) 0.6 % (0-2); EOSINOPHILS % (AUTO) 1.6 % (0-6); HEMATOCRIT 41.8 % (36.0-47.0); HEMOGLOBIN 14.2 g/dL (12.0-15.5); LYMPHOCYTES % (AUTO) 28.9 % (13-45); MEAN CORPUSCULAR HEMOGLOBIN 31.7 pg (27.0-33.4); MEAN CORPUSCULAR HGB CONC 33.9 g/dL (32.0-36.0); MEAN CORPUSCULAR VOLUME 94 fl (80-97); MONOCYTES % (AUTO) 6.5 % (3-13); PLATELET COUNT 356 10^3/uL (150-450); RED BLOOD COUNT 4.47 10^6/uL (3.72-5.28); RED CELL DISTRIBUTION WIDTH 13.5 % (11.5-14.0); SEGMENTED NEUTROPHILS % (AUTO) 62.4 % (42-78); TOTAL CELLS COUNTED % (AUTO) 100 %; WHITE BLOOD COUNT 7.2 10^3/uL (4.0-10.5)
[2020-05-15 11:42] LABS: APPEARANCE,URINE CLOUDY; BILIRUBIN,URINE NEGATIVE (NEGATIVE); COLOR,URINE YELLOW; GLUCOSE, URINE NEGATIVE (NEGATIVE); KETONES,URINE NEGATIVE (NEGATIVE); LEUKOCYTE ESTERASE,URINE SMALL (NEGATIVE); NITRITE,URINE POSITIVE (NEGATIVE); PROTEIN,URINE NEGATIVE (NEGATIVE); URINE SPECIFIC GRAVITY 1.019; UROBILINOGEN,URINE NEGATIVE mg/dL (<2.0)
[2020-05-15 11:59] LABS: ALKALINE PHOSPHATASE 74 U/L (38-126); ANION GAP 7 (5-19); ASPARTATE AMINO TRANSFERASE 19 U/L (14-36); BILIRUBIN,TOTAL 0.8 mg/dL (0.2-1.3); BLOOD UREA NITROGEN 13 mg/dL (7-20); CALCIUM 10.3 mg/dL (8.4-10.2); CARBON DIOXIDE 27 mmol/L (22-30); CHLORIDE 103 mmol/L (98-107); GLUCOSE 92 mg/dL (75-110); POTASSIUM 4.2 mmol/L (3.6-5.0); TOTAL PROTEIN 7.7 g/dL (6.3-8.2)
--- NOTE | 2020-05-15 13:46 | RADIOLOGY REPORT (SQ) ---
EXAM DESCRIPTION: CT ABD/PELVIS NO ORAL OR IV IMAGES COMPLETED DATE/TIME: 05/15/2020 1:08 pm REASON FOR STUDY: R flank pain, hematuria, hx R renal stone COMPARISON: 09/01/2018 TECHNIQUE: CT scan of the abdomen and pelvis performed without intravenous or oral contrast. Images reviewed with lung, soft tissue, and bone windows. Reconstructed coronal and sagittal MPR images revi ewed. All images stored on PACS. All CT scanners at this facility use dose modulation, iterative reconstruction, and/or weight based d osing when appropriate to reduce radiation dose to as low as reasonably achievable (ALARA). [facility]: Dose Right [facility]: CareDose [facility]: Dose Right [facility]: Teradose 4D [facility]: Smart [employer] RADIATION DOSE: CT Rad equipment meets quality standard of care and radiation dose reduction techniq ues were employed. CTDIvol: 4.9 mGy. DLP: 252 mGy-cm.mGy. LIMITATIONS: None. FINDINGS: LOWER CHEST: No significant findings. No nodules or infiltrates. NON-CONTRASTED LIVER, SPLEEN, ADRENALS: Evaluation limited by lack of IV contrast. No identified sign ificant masses. PANCREAS: No masses. No peripancreatic inflammatory changes. GALLBLADDER: No identified stones by CT criteria. No inflammatory changes to suggest cholecystitis. RIGHT KIDNEY AND URETER: No suspicious masses. Assessment limited by lack of IV contrast. Nonobstru cting lower calyceal calculus. No hydronephrosis or hydroureter. LEFT KIDNEY AND URETER: No suspicious masses. Assessment limited by lack of IV contrast. No signifi cant calcifications. No hydronephrosis or hydroureter. AORTA AND RETROPERITONEUM: No aneurysm. No retroperitoneal masses or adenopathy. BOWEL AND PERITONEAL CAVITY: No obvious masses or inflammatory changes. No free fluid. APPENDIX: Not identified. PELVIS, BLADDER, AND ABDOMINAL WALL:No abnormal masses. No free fluid. Bladder normal. BONES: No significant findings. OTHER: No other significant finding. IMPRESSION: There is a nonobstructing lower calyceal calculus on the right. There is no ureteral st one or obstruction. No acute findings in the abdomen or pelvis. COMMENT: Quality ID # [id number]: Final reports with documentation of one or more dose reduction techniques (e.g., Automated exposure control, adjustment of the mA and/or kV according to patient size, use of iterative reconstruction technique) TECHNICAL DOCUMENTATION: JOB ID: [id number] 2010 [employer]- All Rights Reserved Reading location - IP/workstation name: [email or web address]
[2020-05-15 14:11] VITALS: BP 120/66
== END 2020-05-15 14:11 | disposition home or self-care (01) ==
LOC: ER 10:20
DX: N39.0 Urinary tract infection, site not specified (principal); R31.9 Hematuria, unspecified; R10.9 Unspecified abdominal pain; R30.9 Painful micturition, unspecified; Z20.828 Contact with and (suspected) exposure to other viral communicable diseases; Z88.0 Allergy status to penicillin; Z88.8 Allergy status to other drugs, medicaments and biological substances; Z88.1 Allergy status to other antibiotic agents; F17.200 Nicotine dependence, unspecified, uncomplicated; E11.9 Type 2 diabetes mellitus without complications
CPT/HCPCS: 99284; 96374; 36415; 87086; 83690; 85025; 87635; 87088; 80053; 81001; 87186; 74176; J1885; C9803

== ENCOUNTER 2020-07-05 10:15 | Emergency (ER) | payer SELFPAY ==
[2020-07-05 10:21] VITALS: BP 132/93
--- NOTE | 2020-07-05 10:25 | ER Document Report ---
ED Medical Screen (RME) - General Chief Complaint: Flank Pain Stated Complaint: FLANK PAIN Time Seen by Provider: 07/05/20 10:23 Primary Care Provider: ANDREZ ANDREWS NP [Primary Care Provider] - Follow up as needed Notes: HPI: 34-year-old female presenting with bilateral flank pain worse on the left over the last 3 days states she has a history of kidney stones and kidney infections. Has had chills over the last several days. PHYSICAL EXAMINATION: Mild left CVA tenderness on palpation. No other abdominal pain on palpation limited exam in triage I have greeted and performed a rapid initial assessment of this patient. A comprehensive ED assessment and evaluation of the patient, analysis of test results and completion of medical decision making process will be conducted by an additional ED providers. Please note that clinical decision making for this patient was made during the 2019 pandemic of novel coronavirus which caused a significant strain on the healthcare system including at this particular facility. Criteria for admission discharge and level of care decisions as well as treatment decisions have necessarily changed TRAVEL OUTSIDE OF THE [place] IN LAST 30 DAYS: No - Related Data Allergies/Adverse Reactions: phenytoin sodium [From Dilantin] Allergy (Severe, Verified 05/15/20 10:42) Seizures phenytoin sodium extended [From Dilantin] Allergy (Severe, Verified 05/15/20 10:42) Seizures amoxicillin [Amoxicillin] Allergy (Mild, Verified 05/15/20 10:42) Urticaria ciprofloxacin [Ciprofloxacin] Allergy (Mild, Verified 05/15/20 10:42) Urticaria Penicillins Allergy (Mild, Verified 05/15/20 10:42) Urticaria Past Medical History - Past Medical History Cardiac Medical History: Reports: Hx Heart Murmur Denies: Hx Coronary Artery Disease, Hx Heart Attack, Hx Hypertension Pulmonary Medical History: Denies: Hx Asthma, Hx Bronchitis, Hx COPD, Hx Pneumonia Neurological Medical History: Reports: Hx Migraine, Hx Seizures - last seizure 3 months ago - states is not on any anti-convulsant medication. Denies: Hx Cerebrovascular Accident Endocrine Medical History: Reports: Hx Diabetes Mellitus Type 2, Hx Hyperthyroidism Renal/ Medical History: Reports: Hx Ectopic , Hx Kidney Stones, Hx Ovarian Cysts. Denies: Hx Peritoneal Dialysis, Hx Pelvic Inflammatory Disease Musculoskeltal Medical History: Denies Hx Arthritis, Reports Hx Musculoskeletal Deformity, Reports Hx Musculoskeletal Trauma Skin Medical History: Reports Hx MRSA Psychiatric Medical History: Reports: Hx Attention Deficit Hyperactivity Disorder, Hx Depression Traumatic Medical History: Reports: Hx Fractures - clavicle ribs arm nose Infectious Medical History: Reports: Hx MRSA Past Surgical History: Reports: Hx Section - x2, Hx Gynecologic Surgery - tubal ligation, Hx Nose Surgery, Hx Tubal Ligation - Immunizations Hx Diphtheria, Pertussis, Tetanus Vaccination: Yes - december 11 2015 Physical Exam - Vital signs Vitals: Temp Pulse Resp BP Pulse Ox 99.0 F 94 16 132/93 H 100 07/05/20 10:18 07/05/20 10:18 07/05/20 10:18 07/05/20 10:18 07/05/20 10:18 Course - Vital Signs Vital signs: Temp Pulse Resp BP Pulse Ox 99.0 F 94 16 132/93 H 100 07/05/20 10:18 07/05/20 10:18 07/05/20 10:18 07/05/20 10:18 07/05/20 10:18 Doctor's Discharge - Discharge Referrals: ANDREZ ANDREWS [employer] [Primary Care Provider] - Follow up as needed
[2020-07-05 11:30] LABS: ABSOLUTE EOSINOPHILS # (AUTO) 0.2 10^3/uL (0.0-0.6); ABSOLUTE LYMPHOCYTES (AUTO) 1.9 10^3/uL (0.5-4.7); ABSOLUTE MONOCYTES (AUTO) 0.3 10^3/uL (0.1-1.4); ABSOLUTE NEUT (AUTO) 3.2 10^3/uL (1.7-8.2); BASOPHILS % (AUTO) 0.8 % (0-2); HEMATOCRIT 38.9 % (36.0-47.0); HEMOGLOBIN 12.9 g/dL (12.0-15.5); LYMPHOCYTES % (AUTO) 33.6 % (13-45); MEAN CORPUSCULAR HEMOGLOBIN 30.4 pg (27.0-33.4); MEAN CORPUSCULAR HGB CONC 33.1 g/dL (32.0-36.0); MEAN CORPUSCULAR VOLUME 92 fl (80-97); MONOCYTES % (AUTO) 5.5 % (3-13); PLATELET COUNT 332 10^3/uL (150-450); RED BLOOD COUNT 4.24 10^6/uL (3.72-5.28); RED CELL DISTRIBUTION WIDTH 13.8 % (11.5-14.0); SEGMENTED NEUTROPHILS % (AUTO) 56.1 % (42-78); TOTAL CELLS COUNTED % (AUTO) 100 %; WHITE BLOOD COUNT 5.8 10^3/uL (4.0-10.5)
[2020-07-05 11:34] LABS: APPEARANCE,URINE SLIGHTLY-CLOUDY; BILIRUBIN,URINE NEGATIVE (NEGATIVE); COLOR,URINE YELLOW; GLUCOSE, URINE NEGATIVE (NEGATIVE); KETONES,URINE NEGATIVE (NEGATIVE); LEUKOCYTE ESTERASE,URINE NEGATIVE (NEGATIVE); NITRITE,URINE NEGATIVE (NEGATIVE); PROTEIN,URINE NEGATIVE (NEGATIVE); URINE SPECIFIC GRAVITY 1.016; UROBILINOGEN,URINE NEGATIVE mg/dL (<2.0)
[2020-07-05 11:45] LABS: ALBUMIN 4.2 g/dL (3.5-5.0); ALKALINE PHOSPHATASE 72 U/L (38-126); ANION GAP 5 (5-19); ASPARTATE AMINO TRANSFERASE 18 U/L (14-36); BILIRUBIN,DIRECT 0.2 mg/dL (0.0-0.4); BILIRUBIN,TOTAL 0.4 mg/dL (0.2-1.3); BLOOD UREA NITROGEN 14 mg/dL (7-20); CALCIUM 9.8 mg/dL (8.4-10.2); CARBON DIOXIDE 26 mmol/L (22-30); CHLORIDE 106 mmol/L (98-107); GLUCOSE 107 mg/dL (75-110); POTASSIUM 4.2 mmol/L (3.6-5.0); TOTAL PROTEIN 6.6 g/dL (6.3-8.2)
--- NOTE | 2020-07-05 11:49 | ER Document Report ---
ED General - General Chief Complaint: Flank Pain Stated Complaint: FLANK PAIN Time Seen by Provider: 07/05/20 10:23 Primary Care Provider: SALVADOR MARY MD [NO LOCAL MD] - Follow up as needed ANDREZ ANDREWS NP [Primary Care Provider] - Follow up as needed TRAVEL OUTSIDE OF THE [place] IN LAST 30 DAYS: No - HPI Notes: 34-year-old female with a history of nephrolithiasis and pyelonephritis is presents to the emergency room today for complaints of bilateral flank pain right greater than left for the last 3 days. Patient states she has some radiation to her abdomen. Does report some burning with urination. Patient reports she was seen on 05/15/2020, they did find that she had a stone, she states that it did pass the stone. Patient states she was feeling much better until recently. LMP 06/19/2020, . Denies any fevers or chills. Patient recently started taking AZO without relief. Denies any vaginal bleeding or vaginal discharge. does report some burning with urination. Denies fevers, chills, chest pain,palpitations, shortness of breath, dyspnea, nausea, vomiting, diarrhea, abdominal pain, hematuria,blurred vision, double vision, loss of vision, speech changes, LH, dizziness, syncope, headaches, wheezing, ST, URI, neck pain, weakness, bowel or bladder dysfunction, saddle anesthesia, numbness or tingling in bilateral upper or lower extremities equally, muscle paralysis, weakness in bilateral upper or lower extremities equally or rash. Denies IV drug use. - Related Data Allergies/Adverse Reactions: phenytoin sodium [From Dilantin] Allergy (Severe, Verified 05/15/20 10:42) Seizures phenytoin sodium extended [From Dilantin] Allergy (Severe, Verified 05/15/20 10:42) Seizures amoxicillin [Amoxicillin] Allergy (Mild, Verified 05/15/20 10:42) Urticaria ciprofloxacin [Ciprofloxacin] Allergy (Mild, Verified 05/15/20 10:42) Urticaria Penicillins Allergy (Mild, Verified 05/15/20 10:42) Urticaria Past Medical History - General Information source: Patient - Social History Smoking Status: Unknown if Ever Smoked Family History: Reviewed & Not Pertinent, Arthritis, CAD, CVA, DM, Hyperlipidemia, Hypertension, Malignancy, Thyroid Disfunction - Past Medical History Cardiac Medical History: Reports: Hx Heart Murmur Denies: Hx Coronary Artery Disease, Hx Heart Attack, Hx Hypertension Pulmonary Medical History: Denies: Hx Asthma, Hx Bronchitis, Hx COPD, Hx Pneumonia Neurological Medical History: Reports: Hx Migraine, Hx Seizures - last seizure 3 months ago - states is not on any anti-convulsant medication. Denies: Hx Cerebrovascular Accident Endocrine Medical History: Reports: Hx Diabetes Mellitus Type 2, Hx Hyperthyroidism Renal/ Medical History: Reports: Hx Ectopic , Hx Kidney Stones, Hx Ovarian Cysts. Denies: Hx Peritoneal Dialysis, Hx Pelvic Inflammatory Disease Musculoskeletal Medical History: Denies Hx Arthritis, Reports Hx Musculoskeletal Deformity, Reports Hx Musculoskeletal Trauma Skin Medical History: Reports Hx MRSA Psychiatric Medical History: Reports: Hx Attention Deficit Hyperactivity Disorder, Hx Depression Traumatic Medical History: Reports: Hx Fractures - clavicle ribs arm nose Infectious Medical History: Reports: Hx MRSA Past Surgical History: Reports: Hx Section - x2, Hx Gynecologic Surgery - tubal ligation, Hx Nose Surgery, Hx Tubal Ligation - Immunizations Hx Diphtheria, Pertussis, Tetanus Vaccination: Yes - december 11 2015 Review of Systems - Review of Systems Constitutional: No symptoms reported EENT: No symptoms reported Cardiovascular: No symptoms reported Respiratory: No symptoms reported Gastrointestinal: No symptoms reported Genitourinary: See HPI Female Genitourinary: No symptoms reported Musculoskeletal: No symptoms reported Skin: No symptoms reported Hematologic/Lymphatic: No symptoms reported Neurological/Psychological: No symptoms reported Physical Exam - Vital signs Vitals: Temp Pulse Resp BP Pulse Ox 99.0 F 94 16 132/93 H 100 07/05/20 10:18 07/05/20 10:18 07/05/20 10:18 07/05/20 10:18 07/05/20 10:18 - Notes Notes: MEDICATIONS: I agree with the patient medications as charted by the RN. ALLERGIES: I agree with the allergies as charted by the RN. PAST MEDICAL HISTORY/PAST SURGICAL HISTORY: Reviewed and agree as charted by RN. SOCIAL HISTORY: Reviewed and agree as charted by RN. FAMILY HISTORY: No significant familial comorbid conditions directly related to patient complaint EXAM: Reviewed vital signs as charted by RN. PHYSICAL EXAMINATION: reviewed vital signs by RN GENERAL: Well-appearing, well-nourished and in no acute distress. HEAD: Atraumatic, normocephalic. EYES: Pupils equal round and reactive to light, extraocular movements intact, conjunctiva are normal. ENT: Nares patent, oropharynx clear without exudates. Moist mucous membranes. NECK: Normal range of motion, supple without lymphadenopathy LUNGS: Breath sounds clear to auscultation bilaterally and equal. No wheezes rales or rhonchi. HEART: Regular rate and rhythm without murmurs ABDOMEN: Soft, nontender, nondistended abdomen. No guarding, no rebound. No masses appreciated. Scant right CVA tenderness on palpation, no left CVA tenderness on palpation Female : deferred Musculoskeletal: Normal range of motion, no pitting or edema. No cyanosis. NEUROLOGICAL: Cranial nerves grossly intact. Normal speech, normal gait. Normal sensory, motor exams PSYCH: Normal mood, normal affect. SKIN: Warm, Dry, normal turgor, no rashes or lesions noted. Course - Re-evaluation Re-evalutation: 07/05/20 12:55 Afebrile, vital stable no distress. Nurses notes reviewed. CBC negative for leukocytosis or anemia, CMP negative for hepatic or renal dysfunction, no electrolyte disturbances. Urinalysis unremarkable. Urine culture is pending. Serum hCG negative. renal ultrasound unremarkable per radiology for nephrolithiasis, hydronephrosis or other findings. Discussed with patient that she does need to follow-up with a urologist for a history of nephrolithiasis and hydronephrosis. Today's findings are negative and her work-up with blood work and ultrasound. Patient was given Toradol 60 mg IM for her pain, this did resolve it. I will start patient on a 3-day course of antibiotics for cystitis, referral has been given to a darklight inspector as well as a primary care provider within the next 72 hours. discussed with patient that she should not take AZO until she has had a urinalysis performed by healthcare provider to determine if she has a UTI or hydronephrosis. Advised to increase oral hydration, rest. Patient was agreeable with this plan of care. After performing a Medical Screening Examination, I estimate there is LOW risk for ACUTE APPENDICITIS, BOWEL OBSTRUCTION, ACUTE CHOLECYSTITIS, PERFORATED DIVERTICULITIS, INCARCERATED HERNIA, PANCREATITIS, PELVIC INFLAMMATORY DISEASE, PERFORATED ULCER, ECTOPIC , or TUBO-OVARIAN ABSCESS, thus I consider the discharge disposition reasonable. Also, there is no evidence or peritonitis, sepsis, or toxicity. I have reevaluated this patient multiple times and no significant life threatening changes are noted. The patient and I have discussed the diagnosis and risks, and we agree with discharging home with close follow-up with the understanding that symptoms and presentations can change. We also discussed returning to the Emergency Department immediately if new or worsening symptoms occur. We have discussed the symptoms which are most concerning (e.g., bloody stool, fever, changing or worsening pain, vomiting) that necessitate immediate return. - Vital Signs Vital signs: Temp Pulse Resp BP Pulse Ox 99.0 F 94 16 132/93 H 100 07/05/20 10:18 07/05/20 10:18 07/05/20 10:18 07/05/20 10:18 07/05/20 10:18 - Laboratory Results Result Diagrams: 07/05/20 10:41 07/05/20 10:41 Laboratory Results Interpreted: 07/05/20 10:40 Urine Ascorbic Acid 40 H Critical Laboratory Results Reviewed: No Critical Results - Radiology Results Critical Radiology Results Reviewed: No Critical Results Discharge - Discharge Clinical Impression: Cystitis, Pain, flank, bilateral Condition: Stable Disposition: HOME, SELF-CARE Instructions: Toradol Injection ([facility]) Additional Instructions: Your blood work today was normal as well as your ultrasound. You were given 60 mg of Toradol today for your pain. Due to having burning with urination, I will treat you for a cystitis, this is a bacteria of the urethra, which may have not entered your bladder yet. This is why we do a 3-day course of antibiotics. It is advised to follow-up with a urologist, referral has been given to you. Please increase oral hydration, you can take [id number] Tylenol and ibuprofen as needed for pain. There was no kidney infection nor a stone noted today on your ultrasound. Please return to the emergency room if you experience any vomiting, abdominal pain, lower back pain and fevers. Return immediately for any new or worsening symptoms. Follow up with primary care provider, call tomorrow to make followup appointment. Prescriptions: Nitrofurantoin Monohyd/M-Cryst [Macrobid 100 mg Capsule] 100 mg PO BID #6 cap Forms: Return to Work Referrals: ANDREZ ANDREWS, SALVAGER [Primary Care Provider] - Follow up as needed SALVADOR MARY MD [NO LOCAL MD] - Follow up in 3-5 days
[2020-07-05] MEDS ORDERED: KETOROLAC TROMETHAMINE INJ/PF 30 MG/1 ML SDV IV ONE (12:56)
[2020-07-05] MEDS ORDERED: KETOROLAC TROMETHAMINE 60 MG/2 ML SDV IM ONE (13:15)
--- NOTE | 2020-07-05 13:28 | RADIOLOGY REPORT (SQ) ---
EXAM DESCRIPTION: U/S RETROPERITON (RENAL/AORTA) IMAGES COMPLETED DATE/TIME: 07/05/2020 12:08 pm REASON FOR STUDY: R>L flank pain, hx of stones COMPARISON: CT abdomen and pelvis, 05/15/2020 TECHNIQUE: Dynamic and static grayscale images acquired of the kidneys and bladder and recorded on P ACS. Additional selected color Doppler and spectral images recorded. LIMITATIONS: None. FINDINGS: RIGHT KIDNEY: Normal size. Normal echogenicity. No solid or suspicious masses. No hydronep hrosis. No calcifications. Previously described right inferior pole punctate calculus is not definit daysi visualized on ultrasound. LEFT KIDNEY: Normal size. Normal echogenicity. No solid or suspicious masses. No hydronephrosis. No calcifications. BLADDER: No masses. OTHER FINDINGS: No other significant finding. IMPRESSION: No sonographic abnormality of the kidneys or urinary bladder. No hydronephrosis. TECHNICAL DOCUMENTATION: JOB ID: [id number] 2010 [employer] All Rights Reserved Reading location - IP/workstation name: [email or web address]
== END 2020-07-05 14:20 | disposition home or self-care (01) ==
LOC: ER 10:15
DX: N30.90 Cystitis, unspecified without hematuria (principal); R10.9 Unspecified abdominal pain; R30.9 Painful micturition, unspecified; Z79.899 Other long term (current) drug therapy; Z88.0 Allergy status to penicillin; Z88.8 Allergy status to other drugs, medicaments and biological substances; Z88.1 Allergy status to other antibiotic agents
CPT/HCPCS: 99285; 96372; 36415; 87040; 87086; 84702; 85025; 87088; 80053; 81001; 76770; J1885; 87186